=== PATIENT | female | born 1995 | race Caucasian/White ===

== ENCOUNTER 2019-08-03 15:04 | Emergency (ER) | payer BC ==
--- NOTE | 2019-08-03 16:24 | ER Document Report ---
ED Medical Screen (RME) - General Chief Complaint: Abdominal Pain Stated Complaint: ABDOMINAL PAIN,SHORT OF BREATH Time Seen by Provider: 08/03/19 16:17 - HPI Notes: 08/03/19 16:22 24 year old female to the ED with C/O lower abd pain that began 2-3 days ago. states she just had 5 positive home tests. Patient denies any vaginal bleeding. She has not follow up about the new . Never been before. She denies fever, chills. Admits to occasional nausea and one episode of vomiting. Denies urinary complaints. This is her first . Also voices concern over her Thyroid function - she has hypothyroidism. I performed a brief medical screening exam on the patient and determined that the patient will need further evaluation by mainside provider. I have placed initial orders to minister helper in her treatment today. - Related Data Allergies/Adverse Reactions: amoxicillin Allergy (Severe, Verified 08/03/19 16:18) Anaphylaxis Penicillins Allergy (Severe, Verified 08/03/19 16:18) Anaphylaxis Physical Exam - Vital signs Vitals: Temp Pulse Resp BP Pulse Ox 98.5 F 80 18 135/82 H 100 08/03/19 15:15 08/03/19 15:15 08/03/19 15:15 08/03/19 15:15 08/03/19 15:15 Course - Vital Signs Vital signs: Temp Pulse Resp BP Pulse Ox 98.5 F 80 18 135/82 H 100 08/03/19 15:15 08/03/19 15:15 08/03/19 15:15 08/03/19 15:15 08/03/19 15:15
--- NOTE | 2019-08-03 17:09 | RADIOLOGY REPORT (SQ) ---
EXAM DESCRIPTION: U/S OB TRANSVAGINAL W/O DOP COMPLETED DATE/TIME: 08/03/2019 4:54 pm REASON FOR STUDY: abd pain, 5 + tests at home COMPARISON: None. TECHNIQUE: Transvaginal static and realtime grayscale images acquired of the pelvis. Additional stevie cted spectral and color Doppler images recorded. All images stored on PACs. CLINICAL AGE: 4 weeks BHCG: Not available. LIMITATIONS: None. FINDINGS: UTERUS: No visualized intrauterine . RIGHT ADNEXA: Ovary not identified due to poor acoustical window. No adnexal free fluid. No adnexal masses. LEFT ADNEXA: Normal ovary with normal vascular flow. No adnexal free fluid. No adnexal masses. FREE FLUID: None. OTHER: No other significant finding. IMPRESSION: NO VISUALIZED INTRA- OR EXTRAUTERINE . Right ovary not visualized. ECTOPIC CANNOT BE EXCLUDED. FOLLOW-UP ULTRASOUND AND SERIAL BHCG LEVELS STRONGLY RECOMMENDED TO ACCURATELY ASSESS STATU S. TECHNICAL DOCUMENTATION: JOB ID: [id number] [id number] 2010 [employer]- All Rights Reserved Reading location - IP/workstation name: [email or web address]
[2019-08-03 17:19] LABS: ABSOLUTE BASOPHILS # (AUTO) 0.1 10^3/uL (0.0-0.2); ABSOLUTE EOSINOPHILS # (AUTO) 0.1 10^3/uL (0.0-0.6); ABSOLUTE MONOCYTES (AUTO) 0.7 10^3/uL (0.1-1.4); ABSOLUTE NEUT (AUTO) 7.8 10^3/uL (1.7-8.2); BASOPHILS % (AUTO) 0.4 % (0-2); EOSINOPHILS % (AUTO) 0.6 % (0-6); HEMATOCRIT 40.4 % (36.0-47.0); HEMOGLOBIN 13.8 g/dL (12.0-15.5); LYMPHOCYTES % (AUTO) 31.9 % (13-45); MEAN CORPUSCULAR HEMOGLOBIN 30.9 pg (27.0-33.4); MEAN CORPUSCULAR HGB CONC 34.2 g/dL (32.0-36.0); MEAN CORPUSCULAR VOLUME 90 fl (80-97); MONOCYTES % (AUTO) 5.9 % (3-13); PLATELET COUNT 269 10^3/uL (150-450); RED BLOOD COUNT 4.48 10^6/uL (3.72-5.28); RED CELL DISTRIBUTION WIDTH 13.1 % (11.5-14.0); SEGMENTED NEUTROPHILS % (AUTO) 61.2 % (42-78); TOTAL CELLS COUNTED % (AUTO) 100 %; WHITE BLOOD COUNT 12.7 10^3/uL (4.0-10.5)
[2019-08-03 17:42] LABS: ANION GAP 12 (5-19); BLOOD UREA NITROGEN 9 mg/dL (7-20); CARBON DIOXIDE 23 mmol/L (22-30); CHLORIDE 104 mmol/L (98-107); GLUCOSE 82 mg/dL (75-110); POTASSIUM 4.4 mmol/L (3.6-5.0)
[2019-08-03 17:59] LABS: FREE T4 (FREE THYROXINE) 0.86 ng/dL (0.78-2.19)
[2019-08-03 18:03] LABS: APPEARANCE,URINE SLIGHTLY-CLOUDY; BILIRUBIN,URINE NEGATIVE (NEGATIVE); COLOR,URINE YELLOW; GLUCOSE, URINE NEGATIVE (NEGATIVE); KETONES,URINE NEGATIVE (NEGATIVE); LEUKOCYTE ESTERASE,URINE TRACE (NEGATIVE); NITRITE,URINE NEGATIVE (NEGATIVE); PROTEIN,URINE NEGATIVE (NEGATIVE); URINE SPECIFIC GRAVITY 1.019; UROBILINOGEN,URINE NEGATIVE mg/dL (<2.0)
[2019-08-03 18:13] LABS: THYROID STIMULATING HORMONE 0.57 uIU/mL (0.47-4.68)
--- NOTE | 2019-08-03 19:50 | ER Document Report ---
ED General - General Chief Complaint: Abdominal Pain Stated Complaint: ABDOMINAL PAIN,SHORT OF BREATH Time Seen by Provider: 08/03/19 16:17 Mode of Arrival: Ambulatory Information source: Patient Notes: Patient presents emergency department with complaints of lower abdominal pain for the past 2 to 3 days. She reports she took 5 test at home and all were positive. She denies vaginal bleed bleeding. She denies pain with void. Denies urinary frequency. She reports she has never been . Last menstrual period was July 05. She denies fever vomiting diarrhea. She re ports she did vomit once last night but believes it was because she was too full. Patient reports she has an allergy to penicillin and amoxicillin. She reports anaphylactic reaction. - HPI Onset: Other Quality of pain: Cramping Associated symptoms: Vomiting Exacerbated by: Denies Relieved by: Denies Similar symptoms previously: No Recently seen / treated by doctor: No - Related Data Allergies/Adverse Reactions: amoxicillin Allergy (Severe, Verified 08/03/19 16:18) Anaphylaxis Penicillins Allergy (Severe, Verified 08/03/19 16:18) Anaphylaxis Home Medications: Levothyroxine, flovent inhaler, albuterol inhaler Past Medical History - General Information source: Patient Last Menstrual Period: 07/05/19 - Social History Smoking Status: Never Smoker Cigarette use (# per day): No Frequency of alcohol use: Social Drug Abuse: None Lives with: Family Family History: None Patient has suicidal ideation: No Patient has homicidal ideation: No Endocrine Medical History: Reports: Hx Hypothyroidism Past Surgical History: Reports: Hx Oral Surgery Review of Systems - Review of Systems Notes: Review HPI for review of systems., All other systems negative Physical Exam - Vital signs Vitals: Temp Pulse Resp BP Pulse Ox 98.5 F 80 18 135/82 H 100 08/03/19 15:15 08/03/19 15:15 08/03/19 15:15 08/03/19 15:15 08/03/19 15:15 - Notes Notes: PHYSICAL EXAMINATION: GENERAL: Well-appearing and in no acute distress HEAD: Atraumatic, normocephalic. EYES: Pupils equal round and reactive to light, extraocular movements intact, sclera anicteric, conjunctiva are normal. ENT: nares patent, oropharynx clear without exudates. Moist mucous membranes. NECK: Normal range of motion, supple without lymphadenopathy LUNGS: CTAB and equal. No wheezes rales or rhonchi. HEART: Regular rate and rhythm without murmurs ABDOMEN: Soft, no tenderness. No guarding, no rebound EXTREMITIES: Normal range of motion, no pitting edema. No cyanosis. NEUROLOGICAL: Cranial nerves grossly intact. Normal sensory/motor exams. PSYCH: Normal mood, normal affect. SKIN: Warm, Dry, normal turgor, no rashes or lesions noted Course - Re-evaluation Re-evalutation: 08/03/19 20:04 Beta-hCG is 15.80. Transvaginal ultrasound does not show an intrauterine gestational sac. Urinalysis shows leukocytes moderate blood a few WBCs. Patient will be treated for UTI with Macrobid. She is allergic to amoxicillin and penicillins. She reports she has anaphylactic reaction with these kind of medications. She was also instructed on the importance of follow-up with a repeat beta-hCG on Monday. Patient and her were instructed on ultrasound reports. They are instructed it may be too early to detect or possible ectopic . They both verbalized understanding to this information. She was instructed on the importance of returning to the emergency department for worsening symptoms concerns vaginal bleeding increased abdominal pain. She verbalized understanding to all instructions Laboratory 08/03/19 08/03/19 08/03/19 16:50 16:50 16:50 WBC 12.7 H RBC 4.48 Hgb 13.8 Hct 40.4 MCV 90 MCH 30.9 MCHC 34.2 RDW 13.1 Plt Count 269 Lymph % (Auto) 31.9 [place] % (Auto) 5.9 Eos % (Auto) 0.6 Baso % (Auto) 0.4 Absolute Neuts (auto) 7.8 Absolute Lymphs (auto) 4.0 Absolute Monos (auto) 0.7 Absolute Eos (auto) 0.1 Absolute Basos (auto) 0.1 Seg Neutrophils % 61.2 Sodium 138.9 Potassium 4.4 Chloride 104 Carbon Dioxide 23 Anion Gap 12 BUN 9 Creatinine 0.63 Est GFR ( Amer) > 60 Est GFR (MDRD) Non-Af > 60 Glucose 82 Calcium 10.0 TSH 0.57 Free T4 0.86 Beta HCG, Quant 15.80 H Total Beta HCG POSITIVE Urine Color Urine Appearance Urine pH Ur Specific [place] Urine Protein Urine Glucose (UA) Urine Ketones Urine Blood Urine Nitrite Urine Bilirubin Urine Urobilinogen Ur Leukocyte Esterase Urine WBC (Auto) Urine RBC (Auto) Squamous Epi Cells Auto Urine Mucus (Auto) Urine Ascorbic Acid 08/03/19 17:00 WBC RBC Hgb Hct MCV MCH MCHC RDW Plt Count Lymph % (Auto) [place] % (Auto) Eos % (Auto) Baso % (Auto) Absolute Neuts (auto) Absolute Lymphs (auto) Absolute Monos (auto) Absolute Eos (auto) Absolute Basos (auto) Seg Neutrophils % Sodium Potassium Chloride Carbon Dioxide Anion Gap BUN Creatinine Est GFR ( Amer) Est GFR (MDRD) Non-Af Glucose Calcium TSH Free T4 Beta HCG, Quant Total Beta HCG Urine Color YELLOW Urine Appearance SLIGHTLY-CLOUDY Urine pH 5.0 Ur Specific [place] 1.019 Urine Protein NEGATIVE Urine Glucose (UA) NEGATIVE Urine Ketones NEGATIVE Urine Blood MODERATE H Urine Nitrite NEGATIVE Urine Bilirubin NEGATIVE Urine Urobilinogen NEGATIVE Ur Leukocyte Esterase TRACE H Urine WBC (Auto) 3 Urine RBC (Auto) 2 Squamous Epi Cells Auto 3 Urine Mucus (Auto) OCC Urine Ascorbic Acid NEGATIVE Obstetrics Ultrasound 08/03/19 16:20 IMPRESSION: NO VISUALIZED INTRA- OR EXTRAUTERINE . Right ovary not visualized. ECTOPIC CANNOT BE EXCLUDED. FOLLOW-UP ULTRASOUND AND SERIAL BHCG LEVELS STRONGLY RECOMMENDED TO ACCURATELY ASSESS STATUS. - Vital Signs Vital signs: Temp Pulse Resp BP Pulse Ox 98.5 F 80 18 135/82 H 100 08/03/19 15:15 08/03/19 15:15 08/03/19 15:15 08/03/19 15:15 08/03/19 15:15 - Laboratory Result Diagrams: 08/03/19 16:50 08/03/19 16:50 Laboratory results interpreted by me: 08/03/19 08/03/19 08/03/19 16:50 16:50 17:00 WBC 12.7 H Beta HCG, Quant 15.80 H Urine Blood MODERATE H Ur Leukocyte Esterase TRACE H - Diagnostic Test Radiology reviewed: Reports reviewed Discharge - Discharge Clinical Impression: Abdominal pain Qualifiers: Abdominal location: lower abdomen, unspecified Qualified Code(s): R10.30 - Lower abdominal pain, unspecified UTI (urinary tract infection) Qualifiers: Urinary tract infection type: site unspecified Hematuria presence: with hematuria Qualified Code(s): N39.0 - Urinary tract infection, site not specified Condition: Stable Disposition: HOME, SELF-CARE Instructions: Abdominal Pain ([facility]), Cephalosporins ([facility]), Ectopic Precaution ([facility]), Nitrofurantoin ([facility]), [facility], ([facility]), Urinary Tract Infection ([facility]) Additional Instructions: *You have been evaluated for lower abdominal pain, UTI, *Your transvaginal ultrasound did not show a . Pregnancies are usually not detected until you are at least 6 weeks . An ectopic cannot be excluded. your beta hCG was 15.80. You will need to repeat your B- HCG on August 05. You may contact the culture nurse at [phone] for your results 2 hours after the test. *Take medication as prescribed for your UTI *Push fluids *Follow up with a primary care provider health department within 1 week for recheck *Plan urine recheck in one week *Return to ED for worsening condition, changes, needs, vaginal bleeding, increased abdominal pain Prescriptions: Nitrofurantoin/Nitrofuran Mac [Macrobid 100 mg Capsule] 100 mg PO BID #20 capsule Forms: Elevated Blood Pressure, Follow-Up Laboratory Testing
[2019-08-03 20:22] VITALS: BP 129/79
== END 2019-08-03 20:34 | disposition home or self-care (01) ==
LOC: ER 15:04
DX: N39.0 Urinary tract infection, site not specified (principal); R10.30 Lower abdominal pain, unspecified; R06.02 Shortness of breath; Z32.01 Encounter for pregnancy test, result positive; Z88.0 Allergy status to penicillin
CPT/HCPCS: 36415; 76817; 80048; 81001; 84439; 84443; 84702; 85025; 87086; 99284

== ENCOUNTER → 2019-08-05 | Outpatient (CLI) | payer BC | LOC: OD 11:28 | PROVIDERS: ATTEND Nurse Practitioner Family | DX: O26.899 Other specified pregnancy related conditions, unspecified trimester (principal); R10.9 Unspecified abdominal pain | CPT/HCPCS: 36415; 84702 ==

== ENCOUNTER → 2019-08-28 | Outpatient (CLI) | payer BC, OTHER | LOC: OD 15:38 | PROVIDERS: ATTEND Student in an Organized Health Care Education/Training Program | DX: O20.0 Threatened abortion (principal) | CPT/HCPCS: 36415; 86900; 86901 ==

== ENCOUNTER 2020-01-19 13:46 | Outpatient (CLI) | payer BC, OTHER ==
[2020-01-19 16:05] LABS: APPEARANCE,URINE CLOUDY; BILIRUBIN,URINE NEGATIVE (NEGATIVE); CALCIUM OXALATE CRYSTALS,URINE MODERATE /HPF; COLOR,URINE AMBER; GLUCOSE, URINE NEGATIVE (NEGATIVE); KETONES,URINE NEGATIVE (NEGATIVE); LEUKOCYTE ESTERASE,URINE MODERATE (NEGATIVE); NITRITE,URINE NEGATIVE (NEGATIVE); PROTEIN,URINE 30 mg/dL (NEGATIVE); URINE SPECIFIC GRAVITY 1.029
[2020-01-19 16:16] LABS: URINE AMPHETAMINES SCREEN NEGATIVE; URINE BARBITURATES SCREEN NEGATIVE; URINE BENZODIAZEPINES SCREEN NEGATIVE; URINE COCAINE SCREEN NEGATIVE; URINE MARIJUANA (THC) SCREEN NEGATIVE; URINE METHADONE SCREEN NEGATIVE; URINE PHENCYCLIDINE SCREEN NEGATIVE
[2020-01-19 18:22] LABS: RHOGAM DOSE INDICATED 0 VIAL(S)
--- NOTE | 2020-01-20 07:26 | RADIOLOGY REPORT (SQ) ---
EXAM DESCRIPTION: U/S OB LIMITED IMAGES COMPLETED DATE/TIME: 01/19/2020 2:26 pm REASON FOR STUDY: pt fell on stomach COMPARISON: None. TECHNIQUE: Limited transabdominal grayscale ultrasound for evaluation of specific requested obstetri alina parameters. LIMITATIONS: None. FINDINGS: CERVICAL LENGTH: 3.4 cm Closed. KENJI: Total KENJI 11.9 cm. LVP 5.3 cm FHR: 132 beats per minute. PRESENTATION: Cephalic. PLACENTA: Not assessed ANATOMY: Not assessed OTHER: Ultrasound gestational age 28 weeks 2 days IMPRESSION: LIMITED OBSTETRICAL ULTRASOUND WITH MEASURED PARAMETERS DELINEATED ABOVE. Trimester of : Second trimester - 13 weeks 1 day to 27 weeks 6 days. COMMENT: Preliminary report available to the emergency room at the time of scanning TECHNICAL DOCUMENTATION: JOB ID: [id number] 2010 [employer]- All Rights Reserved Reading location - IP/workstation name: [email or web address]
== END 2020-01-19 16:40 | disposition home or self-care (01) ==
LOC: LC 13:46
PROVIDERS: ATTEND Obstetrics & Gynecology
DX: O36.8130 Decreased fetal movements, third trimester, not applicable or unspecified (principal); Z88.0 Allergy status to penicillin; Z3A.28 28 weeks gestation of pregnancy; W19.XXXA Unspecified fall, initial encounter
CPT/HCPCS: 36415; 76815; 80307; 81001; 85460

== ENCOUNTER 2020-03-01 22:48 | Outpatient (CLI) | payer BC, OTHER ==
[2020-03-01 23:23] LABS: APPEARANCE,URINE SLIGHTLY-CLOUDY; BILIRUBIN,URINE NEGATIVE (NEGATIVE); COLOR,URINE YELLOW; GLUCOSE, URINE NEGATIVE (NEGATIVE); KETONES,URINE NEGATIVE (NEGATIVE); LEUKOCYTE ESTERASE,URINE NEGATIVE (NEGATIVE); NITRITE,URINE NEGATIVE (NEGATIVE); PROTEIN,URINE 30 mg/dL (NEGATIVE); URINE SPECIFIC GRAVITY 1.023
[2020-03-01 23:39] LABS: URINE AMPHETAMINES SCREEN NEGATIVE; URINE BARBITURATES SCREEN NEGATIVE; URINE BENZODIAZEPINES SCREEN NEGATIVE; URINE COCAINE SCREEN NEGATIVE; URINE MARIJUANA (THC) SCREEN NEGATIVE; URINE METHADONE SCREEN NEGATIVE; URINE PHENCYCLIDINE SCREEN NEGATIVE
[2020-03-02 00:30] LABS: T.VAGINALIS (WET MOUNT) NO TRICHOMONAS SEEN; WBCS (WET MOUNT) NO WBCS SEEN; YEAST (WET MOUNT) NO YEAST SEEN
--- NOTE | 2020-03-02 01:01 | Non Stress Test Report ---
Non Stress Test Datetime Report Generated by CPN: 03/02/2020 01:01 DEMOGRAPHIC EGA NST: 34.2 INDICATION Indication for Study (NST) Other: Gestational age greater than 32 weeks VITAL SIGNS Temperature - NST: 98.1 Pulse - NST: 84 RESP - NST: 16 NBPSYS NST: 135 NBPDIA NST: 79 URINE RESULTS Urine Protein, NST: Positive Urine Ketones - NST: Negative Urine Glucose - NST: Negative Urine Blood - NST: Positive MONITORING Monitor Explained: Monitor Explained; Test Explained; Patient Verbalized Understanding Time on Monitor: 03/01/2020 23:06 Time off Monitor: 03/02/2020 00:37 NST Duration: 91 NST INTERVENTIONS NST Interventions: PO Hydration; IV Fluids; Reposition Patient Physician Notified NST: Dr. Servin BABY A: [id number] BABY A Movement : Present Contraction Frequency : rare FHR Baseline : 135 Accelerations : 15X15 Decelerations : None Variability : Moderate 6-25bpm NST Review: Meets Criteria for Reactive NST NST Review and Verified By : Aixa Cedillo RN NST Results: Reactive NST REPORT Report Trigger: Send Report
[2020-03-02 01:53] LABS: CHLAM PCR NOT DETECTED (NOT DETECT)
== END 2020-03-02 00:48 | disposition home or self-care (01) ==
LOC: LC 22:48
PROVIDERS: ATTEND Obstetrics & Gynecology
DX: O46.93 Antepartum hemorrhage, unspecified, third trimester (principal); Z3A.34 34 weeks gestation of pregnancy; Z02.83 Encounter for blood-alcohol and blood-drug test
CPT/HCPCS: 59025; 80307; 81001; 84112; 87210; 87491; 87591

== ENCOUNTER 2020-03-09 16:43 | Outpatient (CLI) | payer BC, OTHER ==
[2020-03-09 17:36] LABS: APPEARANCE,URINE SLIGHTLY-CLOUDY; BILIRUBIN,URINE NEGATIVE (NEGATIVE); COLOR,URINE YELLOW; GLUCOSE, URINE NEGATIVE (NEGATIVE); KETONES,URINE NEGATIVE (NEGATIVE); LEUKOCYTE ESTERASE,URINE MODERATE (NEGATIVE); NITRITE,URINE NEGATIVE (NEGATIVE); PROTEIN,URINE NEGATIVE (NEGATIVE); URINE SPECIFIC GRAVITY 1.015; UROBILINOGEN,URINE NEGATIVE mg/dL (<2.0)
[2020-03-09 17:45] LABS: URINE AMPHETAMINES SCREEN NEGATIVE; URINE BARBITURATES SCREEN NEGATIVE; URINE BENZODIAZEPINES SCREEN NEGATIVE; URINE COCAINE SCREEN NEGATIVE; URINE MARIJUANA (THC) SCREEN NEGATIVE; URINE METHADONE SCREEN NEGATIVE; URINE PHENCYCLIDINE SCREEN NEGATIVE
[2020-03-09 17:47] LABS: HEMATOCRIT 37.2 % (36.0-47.0); HEMOGLOBIN 12.9 g/dL (12.0-15.5); MEAN CORPUSCULAR HGB CONC 34.6 g/dL (32.0-36.0); MEAN CORPUSCULAR VOLUME 92 fl (80-97); PLATELET COUNT 193 10^3/uL (150-450); RED BLOOD COUNT 4.02 10^6/uL (3.72-5.28); RED CELL DISTRIBUTION WIDTH 13.6 % (11.5-14.0); WHITE BLOOD COUNT 9.3 10^3/uL (4.0-10.5)
[2020-03-09 18:11] LABS: ALBUMIN 3.7 g/dL (3.5-5.0); ALKALINE PHOSPHATASE 84 U/L (38-126); ANION GAP 7 (5-19); ASPARTATE AMINO TRANSFERASE 22 U/L (14-36); BILIRUBIN,DIRECT 0.3 mg/dL (0.0-0.4); BILIRUBIN,TOTAL 0.3 mg/dL (0.2-1.3); BLOOD UREA NITROGEN 6 mg/dL (7-20); CALCIUM 9.8 mg/dL (8.4-10.2); CARBON DIOXIDE 24 mmol/L (22-30); CHLORIDE 106 mmol/L (98-107); GLUCOSE 72 mg/dL (75-110); POTASSIUM 4.1 mmol/L (3.6-5.0); TOTAL PROTEIN 6.6 g/dL (6.3-8.2); URIC ACID 5.3 mg/dL (2.5-6.2)
[2020-03-09 19:31] LABS: UR PRO/CREAT RATIO RESULT 0.2 mg/mg (0.0-0.2); URINE CREATININE 92.8 mg/dL (16-327); URINE PROTEIN 14.4 mg/dL (<12)
--- NOTE | 2020-03-09 19:57 | Non Stress Test Report ---
Non Stress Test Datetime Report Generated by CPN: 03/09/2020 19:57 DEMOGRAPHIC EGA NST: 35.3 INDICATION Indication for Study (NST) Other: LC VITAL SIGNS Temperature - NST: 99.0 Pulse - NST: 72 RESP - NST: 16 NBPSYS NST: 129 NBPDIA NST: 80 MONITORING Monitor Explained: Monitor Explained; Test Explained; Patient Verbalized Understanding Time on Monitor: 03/09/2020 16:59 Time off Monitor: 03/09/2020 18:39 NST Duration: 100 NST INTERVENTIONS NST Interventions: PO Hydration; Reposition Patient Physician Notified NST: Gareth MD BABY A: [id number] BABY A Movement : Present Contraction Frequency : Irregular FHR Baseline : 135 Accelerations : 15X15 Decelerations : None Variability : Moderate 6-25bpm NST Review: Meets Criteria for Reactive NST NST Review and Verified By : Aixa Cedillo RN NST Results: Reactive NST REPORT Report Trigger: Send Report
== END 2020-03-09 19:54 | disposition home or self-care (01) ==
LOC: LC 16:43
PROVIDERS: ATTEND Obstetrics & Gynecology
DX: O14.93 Unspecified pre-eclampsia, third trimester (principal); Z3A.35 35 weeks gestation of pregnancy; Z88.0 Allergy status to penicillin; Z02.83 Encounter for blood-alcohol and blood-drug test
CPT/HCPCS: 36415; 80053; 80307; 81005; 82570; 84156; 84550; 85027

== ENCOUNTER → 2020-03-24 | Outpatient (CLI) | payer BC, OTHER ==
[2020-03-24 17:36] LABS: ABSOLUTE LYMPHOCYTES (AUTO) 1.9 10^3/uL (0.5-4.7); ABSOLUTE MONOCYTES (AUTO) 0.5 10^3/uL (0.1-1.4); ABSOLUTE NEUT (AUTO) 7.2 10^3/uL (1.7-8.2); BASOPHILS % (AUTO) 0.4 % (0-2); EOSINOPHILS % (AUTO) 0.4 % (0-6); HEMOGLOBIN 12.9 g/dL (12.0-15.5); LYMPHOCYTES % (AUTO) 19.9 % (13-45); MEAN CORPUSCULAR HGB CONC 34.7 g/dL (32.0-36.0); MEAN CORPUSCULAR VOLUME 92 fl (80-97); MONOCYTES % (AUTO) 5.5 % (3-13); PLATELET COUNT 189 10^3/uL (150-450); RED BLOOD COUNT 4.02 10^6/uL (3.72-5.28); RED CELL DISTRIBUTION WIDTH 13.7 % (11.5-14.0); SEGMENTED NEUTROPHILS % (AUTO) 73.8 % (42-78); TOTAL CELLS COUNTED % (AUTO) 100 %; WHITE BLOOD COUNT 9.7 10^3/uL (4.0-10.5)
[2020-03-24 18:00] LABS: ALBUMIN 3.8 g/dL (3.5-5.0); ALKALINE PHOSPHATASE 107 U/L (38-126); ANION GAP 10 (5-19); ASPARTATE AMINO TRANSFERASE 22 U/L (14-36); BILIRUBIN,DIRECT 0.3 mg/dL (0.0-0.4); BILIRUBIN,TOTAL 0.3 mg/dL (0.2-1.3); BLOOD UREA NITROGEN 9 mg/dL (7-20); CALCIUM 9.2 mg/dL (8.4-10.2); CARBON DIOXIDE 20 mmol/L (22-30); CHLORIDE 106 mmol/L (98-107); GLUCOSE 111 mg/dL (75-110); POTASSIUM 4.2 mmol/L (3.6-5.0); TOTAL PROTEIN 6.8 g/dL (6.3-8.2); URIC ACID 5.5 mg/dL (2.5-6.2)
[2020-03-24 18:02] LABS: UR PRO/CREAT RATIO RESULT 0.1 mg/mg (0.0-0.2); URINE CREATININE 140.2 mg/dL (16-327)
== END ==
LOC: OD 16:24
PROVIDERS: ATTEND Obstetrics & Gynecology
DX: O13.9 Gestational [pregnancy-induced] hypertension without significant proteinuria, unspecified trimester (principal); Z13.29 Encounter for screening for other suspected endocrine disorder
CPT/HCPCS: 36415; 80053; 82570; 83615; 84156; 84439; 84443; 84550; 85025

== ENCOUNTER 2020-04-05 17:29 | Inpatient (IN) | payer BC, OTHER ==
[2020-04-05] MEDS ORDERED: ZOLPIDEM TARTRATE 5 MG TABLET PO PRN (17:31)
[2020-04-05] MEDS ORDERED: MAG HYDROX/AL HYDROX/SIMETH SUSP 30 ML UDCUP PO PRN (17:31)
[2020-04-05] MEDS ORDERED: ACETAMINOPHEN 325 MG TABLET PO PRN (17:31)
[2020-04-05] MEDS ORDERED: RINGERS SOLUTION,LACTATED 300 ML IV ONE (17:31)
[2020-04-05] MEDS ORDERED: RINGERS SOLUTION,LACTATED 1,000 ML IV PRN (17:31)
[2020-04-05] MEDS ORDERED: DINOPROSTONE 10 MG VAGINAL INSERT.SR PV ONE (17:31)
[2020-04-05] MEDS ORDERED: OXYTOCIN/0.9 % SODIUM CHLORIDE 30 UNIT/500 ML RTUINJ IV PRN (17:31)
[2020-04-05] MEDS ORDERED: MISOPROSTOL 0.2 MG TABLET ONE (17:36)
[2020-04-05] MEDS ORDERED: LIDOCAINE 1% INJ-PF (10 MG/ML) 30 ML SDV ONE (17:36)
[2020-04-05] MEDS ORDERED: OXYTOCIN/0.9 % SODIUM CHLORIDE 30 UNIT/500 ML RTUINJ ONE (17:36)
[2020-04-05] MEDS ORDERED: OXYTOCIN 10 UNIT/ML VIAL ONE (17:36)
[2020-04-05] MEDS ORDERED: DINOPROSTONE 10 MG VAGINAL INSERT.SR ONE (17:36)
[2020-04-05 18:27] LABS: ABSOLUTE LYMPHOCYTES (AUTO) 1.6 10^3/uL (0.5-4.7); ABSOLUTE MONOCYTES (AUTO) 0.7 10^3/uL (0.1-1.4); BASOPHILS % (AUTO) 0.4 % (0-2); EOSINOPHILS % (AUTO) 0.4 % (0-6); HEMATOCRIT 38.4 % (36.0-47.0); HEMOGLOBIN 13.3 g/dL (12.0-15.5); LYMPHOCYTES % (AUTO) 16.6 % (13-45); MEAN CORPUSCULAR HEMOGLOBIN 31.9 pg (27.0-33.4); MEAN CORPUSCULAR HGB CONC 34.7 g/dL (32.0-36.0); MEAN CORPUSCULAR VOLUME 92 fl (80-97); MONOCYTES % (AUTO) 7.2 % (3-13); PLATELET COUNT 197 10^3/uL (150-450); RED BLOOD COUNT 4.17 10^6/uL (3.72-5.28); SEGMENTED NEUTROPHILS % (AUTO) 75.4 % (42-78); TOTAL CELLS COUNTED % (AUTO) 100 %; WHITE BLOOD COUNT 9.3 10^3/uL (4.0-10.5)
[2020-04-05 18:56] LABS: APPEARANCE,URINE CLEAR; BILIRUBIN,URINE NEGATIVE (NEGATIVE); COLOR,URINE YELLOW; GLUCOSE, URINE NEGATIVE (NEGATIVE); KETONES,URINE NEGATIVE (NEGATIVE); LEUKOCYTE ESTERASE,URINE SMALL (NEGATIVE); NITRITE,URINE NEGATIVE (NEGATIVE); PROTEIN,URINE 30 mg/dL (NEGATIVE); URINE SPECIFIC GRAVITY 1.015; UROBILINOGEN,URINE NEGATIVE mg/dL (<2.0)
[2020-04-05 19:18] LABS: URINE AMPHETAMINES SCREEN NEGATIVE; URINE BARBITURATES SCREEN NEGATIVE; URINE BENZODIAZEPINES SCREEN NEGATIVE; URINE COCAINE SCREEN NEGATIVE; URINE MARIJUANA (THC) SCREEN NEGATIVE; URINE METHADONE SCREEN NEGATIVE; URINE PHENCYCLIDINE SCREEN NEGATIVE
[2020-04-05] MEDS ORDERED: MAG HYDROX/AL HYDROX/SIMETH SUSP 30 ML UDCUP ONE (20:10)
[2020-04-05] MEDS ORDERED: ZOLPIDEM TARTRATE 5 MG TABLET PO ONE (21:24)
[2020-04-05] MEDS ORDERED: ZOLPIDEM TARTRATE 5 MG TABLET ONE (21:25)
[2020-04-06] MEDS ORDERED: FENTANYL/BUPIVACAINE/NS/PF 300 MCG/150 ML RTUINJ EPI ONE (00:14)
[2020-04-06] MEDS ORDERED: ROPIVACAINE HCL 0.2% INJ/PF (2 MG/ML) 20 ML SDV ONE (00:14)
[2020-04-06] MEDS ORDERED: EPHEDRINE SULFATE INJ 50 MG/1 ML AMPULE ONE (00:14)
--- NOTE | 2020-04-06 01:27 | Admission Physical ---
Datetime Report Generated by CPN: 04/06/2020 01:27 CURRENT ADMISSION Chief Complaint: Scheduled Induction of Labor Indication for Induction: Chronic Primary/Essential HTN Admit Impression : Term, Intrauterine ; No Active Labor; Induction of Labor Admit Plan: Admit to Unit; Initiate Labor Induction Protocol ALLERGIES Medication Allergies: Yes Medication Allergies: Penicillins/SV/Anaphylaxis (01/19/2020); amoxicillin/SV/Anaphylaxis (01/19/2020) Latex: No Latex Allergies Food Allergies: n/a Environmental Allergies: n/a OBSTETRICAL HISTORY EDC: 04/10/2020 00:00 : 1 Para: 0 Term: 0 : 0 SAB: 0 IAB: 0 Ectopic: 0 Livin Cesareans: 0 VBACs: 0 Multiple Births: 0 Gestational Diabetes: No Rh Sensitization: No Incompetent Cervix: No ARTURO: No Infertility: No ART Treatment: No Uterine Anomaly: No IUGR: No Hx Previous C/S: No Macrosomia: No Hx Loss/Stillborn: No PIH: Yes Hx : No Placenta Previa/Abruption: No Depression/PP Depression: No PTL/PROM: No Post Hemorrhage: No Current Procedures: Ultrasound; NST Obstetrical History Comments: G1- current [place] SEE RECORDS Alcohol: No Marijuana : No Cocaine: No Other Illicit Drugs: No Cigarettes: Never Smoker. [id number] MEDICAL HISTORY Diabetes: No Blood Transfusion: No Pulmonary Disease (Asthma, TB): Yes Breast Disease: No Hypertension: Yes Nursing Care Partner Surgery: No Heart Disease: No Hosp/Surgery: No Autoimmune Disorder: No Anesthetic Complications: Unknown Kidney Disease: No Abnormal Pap Smear: No Neuro/Epilepsy: No Psychiatric Disorders: No Other Medical Diseases: No Hepatitis/Liver Disease: No Significant Family History: No Varicosities/Phlebitis: No Trauma/Violence : No Thyroid Dysfunction: Yes Medical History Comments: hypothyroidism, Asthma INFECTIOUS HISTORY Gonorrhea: No Genital Herpes: No Chlamydia: No Tuberculosis: No Syphilis: No Hepatitis: No HIV/AIDS Exposure: No Rash or Viral Illness: No HPV: No PHYSICAL EXAM General: Normal HEENT: Normal Neurologic: Normal Thyroid: Normal Heart: Normal Lungs: Normal Breast: Normal Back: Normal Abdomen: Normal Genitourinary Exam: Normal Extremities: Normal DTRs: Normal Pelvic Type: Adequate Vital Signs: Reviewed VAGINAL EXAM Dilatation: 3 Effacement: 75 Station: -2 MEMBRANES Pooling: Negative Membranes: Intact FETUS A EGA: 39.3 Monitoring: External US FHR- Baseline: 150 Variability: Moderate 6-25bpm Accelerations: 10X10 Decelerations: Prolonged FHR Category: Category II FHR Comments: will continue to evaluate. good variability Estimated Weight (gm): 3900 Presentation: Vertex Admit Comment: cervidil pulled secondary to decels. continue to watch. may need c/section PLANS FOR LABOR AND DELIVERY Labor and Delivery: None Pain Management: Epidural Feeding Preference: Breast Benefit of Breast Feed Discussed: Yes Circumcision: N/A INFORMED CONSENT Signature: with User ID: [email or web address]
[2020-04-06] MEDS ORDERED: ACETAMINOPHEN 325 MG TABLET PO PRN (03:49)
[2020-04-06] MEDS ORDERED: ACETAMINOPHEN 650 MG SUPP.RECT PR PRN (03:49)
[2020-04-06] MEDS ORDERED: NA PHOS,M-B/NA PHOS,DI-BA (ADULT) 133 ML ENEMA PR PRN (03:49)
[2020-04-06] MEDS ORDERED: PSEUDOEPHEDRINE HCL 30 MG TABLET PO PRN (03:49)
[2020-04-06] MEDS ORDERED: PROMETHAZINE HCL 25 MG SUPP.RECT PR PRN (03:49)
[2020-04-06] MEDS ORDERED: BENZOCAINE/MENTHOL AEROSOL SPRAY 56 ML TOP PRN (03:49)
[2020-04-06] MEDS ORDERED: DIPH/PERTUSS(ACELL)/TETANUS VAC/PF 0.5 ML SYR (>=10YO) IM PRN (03:49)
[2020-04-06] MEDS ORDERED: DIBUCAINE 1% OINTMENT 28 GM TP PRN (03:49)
[2020-04-06] MEDS ORDERED: PROMETHAZINE HCL 25 MG TABLET PO PRN (03:49)
[2020-04-06] MEDS ORDERED: DIPHENHYDRAMINE HCL 25 MG CAPSULE PO PRN (03:49)
[2020-04-06] MEDS ORDERED: MAGNESIUM HYDROXIDE SUSP 30 ML UDCUP PO PRN (03:49)
[2020-04-06] MEDS ORDERED: PROMETHAZINE HCL INJ 25 MG/1 ML VIAL IV PRN (03:49)
[2020-04-06] MEDS ORDERED: ACETAMINOPHEN WITH CODEINE #3 TABLET PO PRN ×2 (03:49)
[2020-04-06] MEDS ORDERED: OXYTOCIN/0.9 % SODIUM CHLORIDE 30 UNIT/500 ML RTUINJ IV PRN (03:49)
[2020-04-06] MEDS ORDERED: MEASLES,MUMPS&RUBELLA VACC/PF 0.5 ML VIAL SUBCUT PRN (03:49)
[2020-04-06] MEDS ORDERED: GLYCERIN/WITCH HAZEL LEAF 1 EACH MED..WIPE TP PRN (03:49)
[2020-04-06] MEDS ORDERED: ZOLPIDEM TARTRATE 5 MG TABLET PO PRN (03:49)
[2020-04-06] MEDS ORDERED: IBUPROFEN 800 MG TABLET ONE (05:29)
[2020-04-06] MEDS: IBUPROFEN 800 MG TABLET PO SCH ×3 (05:32→21:56)
--- NOTE | 2020-04-06 05:45 | Birth Certificate Data ---
Cert Data Datetime Report Generated by CPN: 04/06/2020 05:44 CERTIFICATE DATA 47a. Care: Yes (01/19/2020 13:49:Nathalie Trinidad RN) 47b. Date of First Visit: 09/02/2019 00:00 (01/19/2020 13:49:Nathalie Trinidad RN) 47c. Date of Last Visit: 03/31/2020 00:00 (01/19/2020 13:49:Nathalie Trinidad RN) 47d. Number of Visits: 14 (01/19/2020 13:49:Nathalie Trinidad RN) 48a. Number of Prev Live Births: 0 (01/19/2020 13:49:Mary Shelton RN) 48b. Now Livin (01/19/2020 13:49:Lakia Chester RN) 48c. Live Births Now : 0 (01/19/2020 13:49:QS system process) 48e. Losses: 0 (01/19/2020 13:49:Mary Shelton RN) RISK FACTORS IN THIS 49a. Diabetes: No (01/19/2020 13:49:Lakia Chester RN) 49b. Hypertension: Yes (01/19/2020 13:49:Lakia Chester RN) Type of Hypertension: Gestational (PIH, Pre-eclampsia) (01/19/2020 13:49:Lakia Chester RN) 49c. Previous Births: 0 (01/19/2020 13:49:Lakia Chester RN) 49d. Stillborns: No (01/19/2020 13:49:Lakia Chester RN) 49d. IUGR: No (01/19/2020 13:49:Lakia Chester RN) 49e. Infertility Treatment: No (01/19/2020 13:49:Mary Shelton RN) 49f. Previous Cesareans: 0 (01/19/2020 13:49:Lakia Chester RN) Mother's Height 50b. Height Inches: 63 (04/05/2020 18:01:QS system process) Mother's Weight 51a. Pre- Weight (lbs): 182 (01/19/2020 13:49:Lakia Chester RN) 51b. Weight at Delivery (lbs): 200 (04/05/2020 18:01:QS system process) 52. Dt Last Normal Menses Began: 07/05/2019 00:00 (01/19/2020 13:49:Nathalie Trinidad RN) Infections Present/Treated 53a. Gonorrhea: No (01/19/2020 13:49:Mary Shelton RN) Results this Hospital Visit : Negative (01/19/2020 13:49:Nathalie Trinidad RN) 53b. Syphilis: No (01/19/2020 13:49:Mary Shelton RN) 53c. Chlamydia: No (01/19/2020 13:49:Mary Shelton RN) Results this Hospital Visit: Negative (01/19/2020 13:49:Nathalie Trinidad RN) 53d. Hepatitis B: No (01/19/2020 13:49:Lakia Chester RN) Results this Hospital Visit: Negative (01/19/2020 13:49:Lakia Chester RN) 53e. Hepatitis C: Negative (01/19/2020 13:49:Lakia Chester RN) 53h. Mother Tested for HBsAG: Yes (01/19/2020 13:49:Nathalie Trinidad RN) 53i. Date Tested: 09/02/2019 00:00 (01/19/2020 13:49:Nathalie Trinidad RN) 53j. Test Result: Negative (01/19/2020 13:49:Lakia Chester RN) Obstetric Procedures 54a, b, c. Obstetric Procedures: Ultrasound; NST (01/19/2020 13:49:Lakia Chester RN) Cigarette Smoking Cigarette Smoking: Never Smoker. [id number] (01/19/2020 13:49:Nathalie Trinidad RN) Onset of Labor 56a. PROM >12 Hrs: 2.15 (04/06/2020 01:27:QS system process) 56b. Precipitous Labor <3 Hrs: 2 (01/19/2020 13:49:QS system process) 56c. Prolonged Labor > 20 Hrs: 2 (01/19/2020 13:49:QS system process) 57a. Induction of Labor: N/A (01/19/2020 13:49:Grant Manzo RN) 57a. Induction of Labor: Cervidil (04/05/2020 18:50:Mary Shelton RN) 57a. Induction of Labor: cervidil (01/19/2020 13:49:Vicki Servin MD ([facility])) 57c. Non-Vertex Presentation A: Vertex (01/19/2020 13:49:Grant Manzo RN) 57f. Mat [place] or Temp >100.4: 98.5 (01/19/2020 13:49:Grant Manzo RN) 57g. Moderate/Heavy Meconium: Clear (04/06/2020 01:27:Grant Manzo RN) 57h. Intolerance of Labor: N/A (01/19/2020 13:49:Grant Manzo RN) : N/A (01/19/2020 13:49:Grant Manzo RN) 57i. Epidural/Spinal Anesthesia: Epidural (01/19/2020 13:49:Grant Manzo RN) Method of Delivery 58a. Forceps - Unsuccessful A: N/A (01/19/2020 13:49:Grant Manzo RN) 58b. Vacuum - Unsuccessful A: N/A (01/19/2020 13:49:Grant Manzo RN) 58c. Presentation at 58c. Presentation at - A : Vertex (01/19/2020 13:49:Grant Manzo RN) 58c. Presentation at - A : N/A (01/19/2020 13:49:Grant Manzo RN) 58c. Presentation at - A : Cephalic (04/05/2020 18:49:Mary Shelton RN) Final Route and Method of Del 58d. Baby A Route/Delivery: Vaginal (04/06/2020 03:36:Grant Manzo RN) 58e. Trial of Labor Attempted: No (01/19/2020 13:49:Grant Manzo RN) 58e. Trial of Labor Attempted A: N/A (01/19/2020 13:49:Grant Manzo RN) 58e. Trial of Labor Attempted B: N/A (01/19/2020 13:49:Grant Manzo RN) Maternal Morbidity 59b. 3rd or 4th Degree Lacs: Vaginal (01/19/2020 13:49:Vicki Servin MD ([facility])) Birthweight Baby A: 3480 (01/19/2020 13:49:Grant Manzo RN) 60a. Pounds : 7 (01/19/2020 13:49:QS system process) 60b. Ounces: 11 (01/19/2020 13:49:QS system process) 61. GA at Delivery Baby A: 39.3 (01/19/2020 13:49:Grant Manzo RN) : Full Term- 39- 40.6 Weeks (01/19/2020 13:49:QS system process) 62a. 5 Minute Baby A: 8 (01/19/2020 13:49:QS system process)
--- NOTE | 2020-04-06 05:45 | Delivery Summary ---
Del Sum A-C Datetime Report Generated by CPN: 04/06/2020 05:44 DELIVERY PERSONNEL DELIVERY PERSONNEL: [id number] Delivery Doctor:: Vicki Servin MD Labor and Delivery Nurse:: Grant Manzo RNpediatric oncologist Nurse:: Jayda Cedillo [employer] Teaching Gr[employer] 7 And 8 Teacher/DIALYSIS CHIEF EQUIPMENT TECHNICIAN: Nellie Green, ST MATERNAL INFORMATION Delivery Anesthesia: Epidural Medications After Delivery: Pitocin 30 Units in 500ml NS/D5W Estimated Blood Loss (ml): 300 Delivery QBL: 150 Maternal Complications: None Provider Comments: mild dystocia lasting less than 30 secs releived with Flavio and suprapubic. nuchal cord x 1 at neck. LABOR SUMMARY EDC: 04/10/2020 00:00 No. Babies in Womb: 1 Attempted: No Labor Anesthesia: Epidural LABOR INFORMATION Reason for Induction: Gestational Hypertension Onset of Labor: 04/06/2020 01:27 Complete Dilatation: 04/06/2020 03:15 Cervical Ripening Agents: Cervidil Other Ripening Agents: cervidil Oxytocin: N/A Group B Beta Strep: negative Antibiotics # of Doses: 0 Name of Antibiotic Given: n/a MEMBRANES Membranes Rupture Method: Artificial Rupture of Membranes: 04/06/2020 01:27 Length of Rupture (hr): 2.15 Amniotic Fluid Color: Clear Amniotic Fluid Amount: Small Amniotic Fluid Odor: Normal STAGES OF LABOR Stage 1 hr: 1 Stage 1 min: 48 Stage 2 hr: 0 Stage 2 min: 21 Stage 3 hr: 0 Stage 3 min: 3 Total Time in Labor hr: 2 Total Time in Labor min: 12 VAGINAL DELIVERY Episiotomy: None Laceration #1: Vaginal Laceration Extension #1: First Degree Laceration Repair: Yes Laceration Repair Note: figure of 8 chromic Sponge Count Correct: Yes Sharps Count Correct: Yes CSECTION DELIVERY Primary Indication: N/A Secondary Indication: N/A CSection Incidence: N/A Labor: N/A Elective: N/A CSection Incision: N/A BABY A INFORMATION Infant Delivery Date/Time: 04/06/2020 03:36 Method of Delivery: Vaginal Nurse Controlled Delivery: No Born in Route : No : N/A Forceps: N/A Vacuum Extraction: N/A Shoulder Dystocia : Yes SHOULDER DYSTOCIA BABY A Delivery of Head: 04/06/2020 03:36 Time Head to Delivery : 0.0 1st Intervention to Resolve: McRobert's Maneuver 2nd Intervention to Resolve: Suprapubic Pressure Verify NO Fundal Pressure: No Fundal Pressure Applied Arm Under Symphisis at Del: Right PRESENTATION/POSITION BABY A Presentation: Cephalic Cephalic Presentation: Vertex Vertex Position: Left Occipital Anterior Breech Presentation: N/A PLACENTA INFORMATION BABY A Placenta Delivery Time : 04/06/2020 03:39 Placenta Method of Delivery: Spontaneous Placenta Status: Delivered SCORES BABY A Heart Rate 1 min: >100 bpm Resp Effort 1 min: Good Cry Reflex Irritability 1 min: Grimace Muscle Tone 1 min: Flaccid Color 1 min: Blue/Pale Resuscitation Effort 1 min: Tactile Stimulation; Oxygen SCORE 1 MIN: 5 Heart Rate 5 min: >100 bpm Resp Effort 5 min: Good Cry Reflex Irritability 5 min: Cough or Sneeze or Pulls Away Muscle Tone 5 min: Some Flexion of Extremities Color 5 min: Body [place], Extremities Blue SCORE 5 MIN: 8 INFANT INFORMATION BABY A Gestational Age at Delivery: 39.3 Gestational Status: Full Term- 39- 40.6 Weeks Outcome : Liveborn Condition : Stable Sex: Female IDENTIFICATION BABY A Verification Date/Time: 04/06/2020 05:04 ID Band Number: [id number] Mother's Name Verified: Yes Infant RN Verifying : Vernon Manzo RN/D Yanete RN WEIGHT/LENGTH BABY A Infant Birthweight (gm): 3480 Weight (lb): 7 Weight (oz): 11 Length (in): 21.75 Infant Length (cm): 55.25 CORD INFORMATION BABY A No. Cord Vessels: 3 Nuchal Cord : Around Neck x1, Loose Cord Blood Taken: Yes-For Storage (Mom's Blood type +) Infant Suction: Mouth; Nose ASSESSMENT BABY A Skin to Skin: Yes Skin to Skin Time (min): 60 BABY B INFORMATION : N/A SIGNATURES Signature: with User ID: [email or web address]
[2020-04-06] MEDS: DOCUSATE SODIUM 100 MG CAPSULE PO SCH ×2 (09:58→17:56)
[2020-04-06] MEDS: SENNOSIDES/DOCUSATE 8.6-50 MG 1 EACH TABLET PO SCH (09:58)
[2020-04-06] MEDS: FERROUS SULFATE 325 MG TABLET PO SCH ×2 (09:59→17:56)
[2020-04-06] MEDS: PRENATAL VITAMIN W DHA CAPSULE PO SCH (10:00)
--- NOTE | 2020-04-06 10:30 | PDOC PROGRESS REPORT ---
Subjective-OB Progress Note for:: 04/06/20 - Delivery Day, pt doing well, UOB, voiding, plans to breastfeed, A+, rubella Immune, IOL for GHTN, denies headache Physical Exam (OB) Vital Signs: Temp Pulse Resp BP Pulse Ox 98.0 F 89 17 126/75 H 99 04/06/20 07:32 04/06/20 07:32 04/06/20 07:32 04/06/20 07:32 04/06/20 07:32 Intake & Output 04/05/20 04/06/20 04/07/20 06:59 06:59 06:59 Intake Total 1200 Output Total 500 Balance 700 Weight 91.2 kg - General General Appearance: Appears well, Alert In distress: None - PIH/Pre-Eclampsia Headache: Absent Epigastric Pain: No Visual Changes: No - Maternal Morbidity 59. Maternal Morbidity (serious complications experinced by the mother associated with labor and delivery: None of the above - Lochia Lochia Amount: Scant < 10 ml Lochia Color: Rubra/Red - Abdomen Description: Tender, Soft, Round Hernia Present: No Fundal Description: Firm, Midline Fundal Height: u/u - u/2 - Respiratory Respiratory Status: No respiratory distress - Genitourinary Genitourinary Note: voiding - Extremities Upper extremity: Normal inspection Lower extremities: Edema - Neurological Cognition: Normal Orientation: AAOx4 - Psychological Associated symptoms: Normal affect, Normal mood - Skin Skin Temperature: Warm Skin Moisture: Dry Objective-Diagnostic Laboratory: 04/05/20 16:11 04/05/20 04/05/20 04/05/20 16:11 16:11 17:50 WBC 9.3 RBC 4.17 Hgb 13.3 Hct 38.4 MCV 92 MCH 31.9 MCHC 34.7 RDW 14.0 Plt Count 197 Seg Neutrophils % 75.4 Urine Color YELLOW Urine Appearance CLEAR Urine pH 6.0 Ur Specific [place] 1.015 Urine Protein 30 H Urine Glucose (UA) NEGATIVE Urine Ketones NEGATIVE Urine Blood NEGATIVE Urine Nitrite NEGATIVE Ur Leukocyte Esterase SMALL H Blood Type A POSITIVE Antibody Screen NEGATIVE Assessment and Plan(PN) - Assessment and Plan (1) (normal spontaneous vaginal delivery) Is this a current diagnosis for this admission?: Yes (2) Gestational hypertension Qualifiers: Trimester: third trimester Qualified Code(s): O13.3 - Gestational [-induced] hypertension without significant proteinuria, third trimester Is this a current diagnosis for this admission?: Yes Plan:: Ambulation encouraged, Routine PP orders - Time Spent with Patient Time with patient: Less than 15 minutes Medications reviewed and adjusted accordingly: Yes - Disposition Anticipated Discharge Disposition: Home, Self Care Anticipated Discharge Timeframe: within 24 hours
[2020-04-06] MEDS: FAMOTIDINE 20 MG TABLET PO SCH ×2 (14:12→21:55)
[2020-04-07] MEDS: IBUPROFEN 800 MG TABLET PO SCH ×3 (05:53→21:23)
[2020-04-07 06:31] LABS: HEMATOCRIT 36.6 % (36.0-47.0); HEMOGLOBIN 12.5 g/dL (12.0-15.5); MEAN CORPUSCULAR HEMOGLOBIN 32.1 pg (27.0-33.4); MEAN CORPUSCULAR HGB CONC 34.3 g/dL (32.0-36.0); MEAN CORPUSCULAR VOLUME 94 fl (80-97); PLATELET COUNT 155 10^3/uL (150-450); RED BLOOD COUNT 3.91 10^6/uL (3.72-5.28); RED CELL DISTRIBUTION WIDTH 14.1 % (11.5-14.0); WHITE BLOOD COUNT 9.7 10^3/uL (4.0-10.5)
[2020-04-07] MEDS: SENNOSIDES/DOCUSATE 8.6-50 MG 1 EACH TABLET PO SCH (09:28)
[2020-04-07] MEDS: FAMOTIDINE 20 MG TABLET PO SCH ×2 (09:28→21:24)
[2020-04-07] MEDS: PRENATAL VITAMIN W DHA CAPSULE PO SCH (09:28)
[2020-04-07] MEDS: DOCUSATE SODIUM 100 MG CAPSULE PO SCH ×2 (09:28→17:24)
[2020-04-07] MEDS: FERROUS SULFATE 325 MG TABLET PO SCH ×2 (09:28→17:24)
--- NOTE | 2020-04-07 11:14 | PDOC PROGRESS REPORT ---
Subjective-OB Progress Note for:: 04/07/20 Subjective: Pt doing well, no concerns. She reports light bleeding, reg diet and voiding w/o difficulty. Physical Exam (OB) Vital Signs: Temp Pulse Resp BP Pulse Ox 97.9 F 70 17 129/98 H 100 04/07/20 07:40 04/07/20 07:40 04/07/20 07:40 04/07/20 07:40 04/07/20 07:40 Intake & Output 04/06/20 04/07/20 04/08/20 06:59 06:59 06:59 Intake Total 2900 300 Output Total 500 Balance 2400 300 Weight 91.2 kg - Maternal Morbidity 59. Maternal Morbidity (serious complications experinced by the mother associated with labor and delivery: None of the above - Lochia Lochia Amount: Small 10-25 ml Lochia Color: Rubra/Red - Abdomen Description: Soft Hernia Present: No Fundal Description: Firm, Midline Fundal Height: u/u - u/2 Objective-Diagnostic Laboratory: 04/07/20 06:02 04/07/20 06:02 WBC 9.7 RBC 3.91 Hgb 12.5 Hct 36.6 MCV 94 MCH 32.1 MCHC 34.3 RDW 14.1 H Plt Count 155 Assessment and Plan(PN) - Assessment and Plan (1) Gestational hypertension Qualifiers: Trimester: third trimester Qualified Code(s): O13.3 - Gestational [-induced] hypertension without significant proteinuria, third trimester Is this a current diagnosis for this admission?: Yes (2) (normal spontaneous vaginal delivery) Is this a current diagnosis for this admission?: Yes - Time Spent with Patient Time with patient: Less than 15 minutes Medications reviewed and adjusted accordingly: Yes - Disposition Anticipated Discharge Disposition: Home, Self Care Anticipated Discharge Timeframe: within 24 hours
[2020-04-08] MEDS: IBUPROFEN 800 MG TABLET PO SCH ×2 (05:10→13:15)
[2020-04-08] MEDS: FAMOTIDINE 20 MG TABLET PO SCH (10:08)
[2020-04-08] MEDS: DOCUSATE SODIUM 100 MG CAPSULE PO SCH (10:08)
[2020-04-08] MEDS: PRENATAL VITAMIN W DHA CAPSULE PO SCH (10:08)
[2020-04-08] MEDS: SENNOSIDES/DOCUSATE 8.6-50 MG 1 EACH TABLET PO SCH (10:08)
[2020-04-08] MEDS: FERROUS SULFATE 325 MG TABLET PO SCH (10:08)
[2020-04-08 11:48] VITALS: BP 129/81
--- NOTE | 2020-04-08 11:50 | PDOC DISCHARGE SUMMARY ---
Impression - Admit/DC Date/PCP Admission Date/Primary Care Provider: 04/05/20 17:29 Discharge Date: 04/08/20 - Discharge Diagnosis (1) Gestational hypertension Is this a current diagnosis for this admission?: Yes (2) (normal spontaneous vaginal delivery) Is this a current diagnosis for this admission?: Yes (3) Obstetric vaginal laceration Is this a current diagnosis for this admission?: Yes (4) Shoulder dystocia during labor and delivery, delivered Is this a current diagnosis for this admission?: Yes - Assessment Summary: 24yo s/p ppd2- stable and ready for discharge, understands all warning s/s and reasons to rtc/[facility] prior to next scheduled visit. Pt asked questions and verbalized understanding. - Additional Information Resuscitation Status: Full Code Discharge Diet: As Tolerated, Regular Discharge Activity: Activity As Tolerated, Balance Activity w/Rest, No Lifting Over 10 Pounds, No Lifting/Push/Pulling, Pelvic Rest, No tub bath, Walk Frequently Prescriptions: Ibuprofen [Motrin 800 mg Tablet] 800 mg PO Q8HP PRN #20 tablet PRN Reason: For Pain Scale 1-3 Home Medications: Albuterol Sulfate [Albuterol Sulfate Hfa] 8.5 gm IH PRN PRN 01/19/20 Fluticasone Propionate [Flovent Hfa 110 Mcg Inhalation Aerosol 12 gm] 120 puff IH PRN PRN 01/19/20 Levothyroxine Sodium [Synthroid] 100 mcg PO DAILY 01/19/20 Vit No.130/Iron/Folic [ Tablet] 1 each PO DAILY 01/19/20 Ibuprofen [Motrin 800 mg Tablet] 800 mg PO Q8HP PRN #20 tablet 04/08/20 Hospital Course 59. Maternal Morbidity (serious complications experinced by the mother associated with labor and delivery: None of the above Results Laboratory Results: WBC 9.7 10^3/uL (4.0-10.5) 04/07/20 06:02 RBC 3.91 10^6/uL (3.72-5.28) 04/07/20 06:02 Hgb 12.5 g/dL (12.0-15.5) 04/07/20 06:02 Hct 36.6 % (36.0-47.0) 04/07/20 06:02 MCV 94 fl (80-97) 04/07/20 06:02 MCH 32.1 pg (27.0-33.4) 04/07/20 06:02 MCHC 34.3 g/dL (32.0-36.0) 04/07/20 06:02 RDW 14.1 % (11.5-14.0) H 04/07/20 06:02 Plt Count 155 10^3/uL (150-450) 04/07/20 06:02 Lymph % (Auto) 16.6 % (13-45) 04/05/20 16:11 [place]mullen % (Auto) 7.2 % (3-13) 04/05/20 16:11 Eos % (Auto) 0.4 % (0-6) 04/05/20 16:11 Baso % (Auto) 0.4 % (0-2) 04/05/20 16:11 Absolute Neuts (auto) 7.0 10^3/uL (1.7-8.2) 04/05/20 16:11 Absolute Lymphs (auto) 1.6 10^3/uL (0.5-4.7) 04/05/20 16:11 Absolute Monos (auto) 0.7 10^3/uL (0.1-1.4) 04/05/20 16:11 Absolute Eos (auto) 0.0 10^3/uL (0.0-0.6) 04/05/20 16:11 Absolute Basos (auto) 0.0 10^3/uL (0.0-0.2) 04/05/20 16:11 Seg Neutrophils % 75.4 % (42-78) 04/05/20 16:11 Urine Color YELLOW 04/05/20 17:50 Urine Appearance CLEAR 04/05/20 17:50 Urine pH 6.0 (5.0-9.0) 04/05/20 17:50 Ur Specific [place] 1.015 04/05/20 17:50 Urine Protein 30 mg/dL (NEGATIVE) H 04/05/20 17:50 Urine Glucose (UA) NEGATIVE mg/dL (NEGATIVE) 04/05/20 17:50 Urine Ketones NEGATIVE mg/dL (NEGATIVE) 04/05/20 17:50 Urine Blood NEGATIVE (NEGATIVE) 04/05/20 17:50 Urine Nitrite NEGATIVE (NEGATIVE) 04/05/20 17:50 Urine Bilirubin NEGATIVE (NEGATIVE) 04/05/20 17:50 Urine Urobilinogen NEGATIVE mg/dL (<2.0) 04/05/20 17:50 Ur Leukocyte Esterase SMALL (NEGATIVE) H 04/05/20 17:50 Urine Ascorbic Acid NEGATIVE (NEGATIVE) 04/05/20 17:50 Urine Opiates Screen NEGATIVE 04/05/20 17:50 Urine Methadone Screen NEGATIVE 04/05/20 17:50 Ur Barbiturates Screen NEGATIVE 04/05/20 17:50 Ur Phencyclidine Scrn NEGATIVE 04/05/20 17:50 Ur Amphetamines Screen NEGATIVE 04/05/20 17:50 U Benzodiazepines Scrn NEGATIVE 04/05/20 17:50 Urine Cocaine Screen NEGATIVE 04/05/20 17:50 U Marijuana (THC) Screen NEGATIVE 04/05/20 17:50 RPR NONREACTIVE (NONREACTIVE) 04/05/20 16:11 Blood Type A POSITIVE 04/05/20 16:11 Antibody Screen NEGATIVE 04/05/20 16:11
== END 2020-04-08 14:51 | disposition home or self-care (01) | DRG 807 ==
LOC: LR 17:29 → 2S 04-06 06:02
PROVIDERS: ADMIT Obstetrics & Gynecology; ATTEND Obstetrics & Gynecology
PROC: 10E0XZZ Delivery of Products of Conception, External Approach (ICD-10-PCS; principal; 2020-04-06)
PROC: 0HQ9XZZ Repair Perineum Skin, External Approach (ICD-10-PCS; 2020-04-06)
PROC: 10907ZC Drainage of Amniotic Fluid, Therapeutic from Products of Conception, Via Natural or Artificial Opening (ICD-10-PCS; 2020-04-06)
DX: O13.4 Gestational [pregnancy-induced] hypertension without significant proteinuria, complicating childbirth (principal); Z37.0 Single live birth; O66.0 Obstructed labor due to shoulder dystocia; O99.284 Endocrine, nutritional and metabolic diseases complicating childbirth; O70.0 First degree perineal laceration during delivery; E03.9 Hypothyroidism, unspecified; O69.81X0 Labor and delivery complicated by cord around neck, without compression, not applicable or unspecified; Z03.818 Encounter for observation for suspected exposure to other biological agents ruled out; Z88.0 Allergy status to penicillin; Z3A.39 39 weeks gestation of pregnancy
CPT/HCPCS: 1967; 36415; 80307; 81005; 85025; 85027; 86592; 86850; 86900; 86901; 90715; J2590; J2795; J3010; J3490

== ENCOUNTER 2020-04-20 04:43 | Observation (INO) | payer BC, OTHER ==
[2020-04-20 05:20] LABS: ABSOLUTE BASOPHILS # (AUTO) 0.1 10^3/uL (0.0-0.2); ABSOLUTE EOSINOPHILS # (AUTO) 0.2 10^3/uL (0.0-0.6); ABSOLUTE LYMPHOCYTES (AUTO) 3.3 10^3/uL (0.5-4.7); ABSOLUTE MONOCYTES (AUTO) 0.5 10^3/uL (0.1-1.4); ABSOLUTE NEUT (AUTO) 8.1 10^3/uL (1.7-8.2); EOSINOPHILS % (AUTO) 1.7 % (0-6); HEMATOCRIT 43.2 % (36.0-47.0); HEMOGLOBIN 14.9 g/dL (12.0-15.5); MEAN CORPUSCULAR HEMOGLOBIN 31.8 pg (27.0-33.4); MEAN CORPUSCULAR HGB CONC 34.5 g/dL (32.0-36.0); MEAN CORPUSCULAR VOLUME 92 fl (80-97); PLATELET COUNT 253 10^3/uL (150-450); RED BLOOD COUNT 4.69 10^6/uL (3.72-5.28); RED CELL DISTRIBUTION WIDTH 13.5 % (11.5-14.0); SEGMENTED NEUTROPHILS % (AUTO) 66.3 % (42-78); TOTAL CELLS COUNTED % (AUTO) 100 %; WHITE BLOOD COUNT 12.3 10^3/uL (4.0-10.5)
[2020-04-20 05:39] LABS: ALBUMIN 4.6 g/dL (3.5-5.0); ALKALINE PHOSPHATASE 97 U/L (38-126); ANION GAP 13 (5-19); ASPARTATE AMINO TRANSFERASE 47 U/L (14-36); BILIRUBIN,DIRECT 0.4 mg/dL (0.0-0.4); BILIRUBIN,TOTAL 0.5 mg/dL (0.2-1.3); BLOOD UREA NITROGEN 15 mg/dL (7-20); CALCIUM 9.8 mg/dL (8.4-10.2); CARBON DIOXIDE 25 mmol/L (22-30); CHLORIDE 104 mmol/L (98-107); GLUCOSE 100 mg/dL (75-110); POTASSIUM 4.3 mmol/L (3.6-5.0); TOTAL PROTEIN 7.5 g/dL (6.3-8.2)
[2020-04-20 06:05] LABS: APPEARANCE,URINE CLEAR; BILIRUBIN,URINE NEGATIVE (NEGATIVE); COLOR,URINE YELLOW; GLUCOSE, URINE NEGATIVE (NEGATIVE); KETONES,URINE NEGATIVE (NEGATIVE); LEUKOCYTE ESTERASE,URINE SMALL (NEGATIVE); NITRITE,URINE NEGATIVE (NEGATIVE); PROTEIN,URINE NEGATIVE (NEGATIVE); URINE SPECIFIC GRAVITY 1.021; UROBILINOGEN,URINE NEGATIVE mg/dL (<2.0)
[2020-04-20] MEDS ORDERED: NORMAL SALINE 1000 ML 1,000 ML IV ONE ×2 (06:40→09:38)
[2020-04-20] MEDS ORDERED: ONDANSETRON HCL INJ/PF 4 MG/2 ML SDV IV ONE (06:40)
[2020-04-20] MEDS ORDERED: MORPHINE SULFATE 10 MG/ML INJ IV ONE (06:41)
--- NOTE | 2020-04-20 06:43 | ER Document Report ---
ED GI/ - General Chief Complaint: Abdominal Pain Stated Complaint: ABDOMINAL PAIN,VOMIT Time Seen by Provider: 04/20/20 06:26 Notes: HPI: 24-year-old G1, P1 with normal spontaneous vaginal delivery 2 weeks ago presents today with the onset last night of some epigastric and right upper quadrant "pain". No radiation to the back. No aggravating relieving factors. Nausea and vomiting x3. No diarrhea. No lower abdominal discomfort. No h istory of gallstones or gastric ulcers. ROS: See HPI All other review of systems reviewed and otherwise negative Reviewed vital signs and nursing note as charted by RN. PHYSICAL EXAM: CONSTITUTIONAL: Alert and oriented and responds appropriately to questions HEAD: Normocephalic; atraumatic EYES: Sclerae non-icteric ENT: Normal nose; no rhinorrhea; moist mucous membranes; pharynx without lesions noted NECK: Supple without meningismus; non-tender; no cervical lymphadenopathy, no masses CARD: Regular rate and rhythm; no murmurs; symmetric distal pulses RESP: Normal chest excursion without splinting or tachypnea; breath sounds clear and equal bilaterally; no wheezes, no rhonchi, no rales ABD/GI: Normal bowel sounds; non-distended; tender to palpation to the epigastric and right upper quadrant. Positive Saldana sign. No lower abdominal tenderness to deep palpation BACK: The back appears normal and is non-tender to palpation EXT: Normal ROM in all joints; non-tender to palpation; no edema SKIN: No acute lesions noted NEURO: CN 2-12 intact; 5/5 bilateral upper and lower extremity strength with sensation intact to light touch PSYCH: The patient's mood and manner are appropriate. Grooming and personal hygiene are appropriate. TRAVEL OUTSIDE OF THE [place] IN LAST 30 DAYS: No - Related Data Allergies/Adverse Reactions: amoxicillin Allergy (Severe, Verified 01/19/20 13:58) Anaphylaxis Penicillins Allergy (Severe, Verified 01/19/20 13:58) Anaphylaxis Past Medical History - Social History Smoking Status: Never Smoker Family History: None Endocrine Medical History: Reports: Hx Hypothyroidism Psychiatric Medical History: Denies: Hx Depression Past Surgical History: Reports: Hx Oral Surgery Physical Exam - Vital signs Vitals: Temp Pulse Resp BP Pulse Ox 97.5 F 70 18 119/81 96 04/20/20 04:58 04/20/20 04:58 04/20/20 04:58 04/20/20 04:58 04/20/20 04:58 Course - Re-evaluation Re-evalutation: 04/20/20 06:43 Given the history and physical examination with the labs ordered in triage as recorded, I will proceed with a right upper quadrant ultrasound of the abdomen to evaluate the possibility of gallbladder pathology. Patient's pain will be treated and I will provide fluids and nausea medications. 04/20/20 09:40 Ultrasound as recorded. Patient's pain is improved with the morphine. Vital signs are stable. Patient does have an elevated white blood cell count with minimal transaminitis. I did speak to the surgical team who will come to see the patient. Patient has anaphylaxis to penicillins. We will provide Levaquin and Flagyl. Patient last ate or drank last evening. - Vital Signs Vital signs: Temp Pulse Resp BP Pulse Ox 97.5 F 70 18 119/81 96 04/20/20 04:58 04/20/20 04:58 04/20/20 04:58 04/20/20 04:58 04/20/20 04:58 - Laboratory Result Diagrams: 04/20/20 05:12 04/20/20 05:12 Laboratory results interpreted by me: 04/20/20 04/20/20 04/20/20 05:12 05:12 05:41 WBC 12.3 H AST 47 H Ur Leukocyte Esterase SMALL H Discharge - Discharge Clinical Impression: Acute cholecystitis Condition: Fair Disposition: ADMITTED OBSERVATION Admitting Provider: Surgicalist Unit Admitted: Surgical Floor
--- NOTE | 2020-04-20 09:16 | RADIOLOGY REPORT (SQ) ---
EXAM DESCRIPTION: U/S ABDOMEN LIMITED W/O DOP IMAGES COMPLETED DATE/TIME: 04/20/2020 8:52 am REASON FOR STUDY: 15; RUQ abdominal pain COMPARISON: None. TECHNIQUE: Dynamic and static grayscale images acquired of the abdomen and recorded on PACS. Additio nal selected color Doppler and spectral images recorded. LIMITATIONS: None. FINDINGS: PANCREAS: No masses. Visualized pancreatic duct normal caliber. LIVER: Normal size Echo texture normal. No focal masses. LIVER VASCULATURE: Normal directional flow of the main portal vein and hepatic veins. GALLBLADDER: Gallstones. Trace amount of pericholecystic fluid. No gallbladder wall thickening. ULTRASOUND-DETECTED ERAZO'S SIGN: Negative. INTRAHEPATIC DUCTS AND COMMON DUCT: CBD and intrahepatic ducts normal caliber. No filling defects. INFERIOR VENA CAVA: Normal flow. AORTA: No aneurysm. RIGHT KIDNEY: Normal size. Normal echogenicity. No solid or suspicious masses. No hydronephros is. No calcifications. PERITONEAL AND RIGHT PLEURAL SPACE: No ascites or effusions. OTHER: No other significant findings. IMPRESSION: Cholelithiasis. Possible cholecystitis. TECHNICAL DOCUMENTATION: JOB ID: [id number] 2010 [employer]- All Rights Reserved Reading location - IP/workstation name: [email or web address]
[2020-04-20] MEDS ORDERED: LEVOFLOXACIN 750 MG/D5W RTU 750 MG/150 ML RTUPB IV ONE (09:41)
[2020-04-20] MEDS ORDERED: METRONIDAZOLE 500 MG/NS RTU 500 MG/100 ML RTUPB IV ONE (09:42)
[2020-04-20] MEDS ORDERED: BUPIVACAINE HCL 0.25 % INJ/PF (2.5 MG/1 ML) 30 ML VIAL ONE (10:40)
[2020-04-20] MEDS ORDERED: MORPHINE SULFATE 10 MG/ML INJ IV PRN ×2 (11:03→12:52)
[2020-04-20] MEDS ORDERED: DEXTROSE 5%-LACTATED RINGERS 1,000 ML IV PRN (11:03)
[2020-04-20] MEDS ORDERED: ONDANSETRON HCL INJ/PF 4 MG/2 ML SDV IV PRN (11:03)
[2020-04-20] MEDS ORDERED: MIDAZOLAM 2 MG/2 ML INJ ONE (11:33)
[2020-04-20] MEDS ORDERED: FENTANYL CITRATE INJ/PF 100 MCG/2 ML AMPUL ONE (11:33)
[2020-04-20] MEDS ORDERED: ONDANSETRON HCL INJ/PF 4 MG/2 ML SDV ONE (11:34)
[2020-04-20] MEDS ORDERED: PROPOFOL INJ 200 MG/20 ML VIAL IV ONE (11:34)
[2020-04-20] MEDS ORDERED: DEXAMETHASONE SOD PHOSPHATE INJ 4 MG/1 ML VIAL ONE (11:34)
[2020-04-20] MEDS ORDERED: MORPHINE SULFATE 10 MG/ML INJ ONE (11:34)
--- NOTE | 2020-04-20 12:23 | PDOC H&P ---
History of Present Illness Patient complains of: Epigastric and RUQ pain, nausea, vomiting History of Present Illness: NACHO VAZ is a 24 year old female with a one day h/o epigastric and RUQ pain, that she rates as severe. It is sharp and stabbing in nature. At its worst, it was 10/10. It radiates around to her right back. She has experienced nausea and vomiting. Last night she ate fast food and went to bed without symptoms. She was awoken in the middle of the night with epigastric and RUQ pain. She presented to the hospital because her pain was constant, and would not subside. nothing makes her pain better. Palpation and movement makes it worse. She denies fevers, chills, dizziness, blurry vision, headache, melena, hematochezia, or hematemesis. She is 2 weeks from a vaginal delivery. Past Medical History Cardiac Medical History: Reports: Hypertension Pulmonary Medical History: Reports: Asthma Endocrine Medical History: Reports: Hypothyroidism GI Medical History: Denies: Peptic Ulcer Disease Psychiatric Medical History: Denies: Depression Past Surgical History Past Surgical History: Reports: Other - recent vaginal delivery Social History Smoking Status: Never Smoker Electronic Cigarette use?: No Frequency of Alcohol Use: None Hx Recreational Drug Use: No Hx Prescription Drug Abuse: No Family History Family History: None Parental Family History Reviewed: Yes Children Family History Reviewed: Yes Sibling(s) Family History Reviewed.: Yes Medication/Allergy Home Medications: Albuterol Sulfate [Albuterol Sulfate Hfa] 8.5 gm IH PRN PRN 01/19/20 Fluticasone Propionate [Flovent Hfa 110 Mcg Inhalation Aerosol 12 gm] 120 puff IH PRN PRN 01/19/20 Levothyroxine Sodium [Synthroid] 100 mcg PO DAILY 01/19/20 Vit No.130/Iron/Folic [ Tablet] 1 each PO DAILY 01/19/20 Ibuprofen [Motrin 800 mg Tablet] 800 mg PO Q8HP PRN #20 tablet 04/08/20 Allergies/Adverse Reactions: amoxicillin Allergy (Severe, Verified 01/19/20 13:58) Anaphylaxis Penicillins Allergy (Severe, Verified 01/19/20 13:58) Anaphylaxis Review of Systems Constitutional: ABSENT: anorexia, chills, fatigue Eyes: ABSENT: visual disturbances Ears: ABSENT: hearing changes Nose, Mouth, and Throat: ABSENT: sore throat Cardiovascular: ABSENT: chest pain Respiratory: ABSENT: cough, dyspnea Gastrointestinal: PRESENT: abdominal pain, nausea, vomiting. ABSENT: bloating, hematemesis, hematochezia, melena Genitourinary: ABSENT: dysuria Musculoskeletal: PRESENT: back pain Integumentary: ABSENT: pruritus, rash Neurological: ABSENT: confusion, convulsions, dizziness Psychiatric: ABSENT: anxiety, depression Endocrine: ABSENT: cold intolerance, heat intolerance Hematologic/Lymphatic: ABSENT: easy bleeding, easy bruising Physical Exam Vital Signs: Temp Pulse Resp BP Pulse Ox 97.5 F 70 18 119/81 96 04/20/20 04:58 04/20/20 04:58 04/20/20 04:58 04/20/20 04:58 04/20/20 04:58 Intake & Output 04/19/20 04/20/20 04/21/20 06:59 06:59 06:59 Intake Total 1000 Balance 1000 Weight 81.1 kg General appearance: PRESENT: no acute distress, cooperative. ABSENT: disheveled Head exam: PRESENT: atraumatic, normocephalic Eye exam: PRESENT: EOMI, PERRLA. ABSENT: scleral icterus Mouth exam: PRESENT: moist, neck supple Neck exam: ABSENT: meningismus, tenderness, thyromegaly, tracheal deviation Respiratory exam: PRESENT: unlabored. ABSENT: tachypnea, wheezes Cardiovascular exam: ABSENT: tachycardia Pulses: PRESENT: normal radial pulses GI/Abdominal exam: PRESENT: Saldana's sign, soft, tenderness - RUQ tenderness. ABSENT: distended, rigid Rectal exam: PRESENT: deferred Extremities exam: PRESENT: clubbing Musculoskeletal exam: ABSENT: deformity Neurological exam: PRESENT: alert, awake, oriented to person, oriented to place, oriented to time, oriented to situation, CN II-XII grossly intact. ABSENT: motor sensory deficit Psychiatric exam: ABSENT: agitated, anxious, depressed Focused psych exam: ABSENT: delusional Skin exam: ABSENT: cyanosis, erythema, jaundice Results Laboratory Results: 04/20/20 05:12 04/20/20 05:12 04/20/20 04/20/20 04/20/20 05:12 05:12 05:41 WBC 12.3 H RBC 4.69 Hgb 14.9 Hct 43.2 MCV 92 MCH 31.8 MCHC 34.5 RDW 13.5 Plt Count 253 Seg Neutrophils % 66.3 Sodium 141.5 Potassium 4.3 Chloride 104 Carbon Dioxide 25 Anion Gap 13 BUN 15 Creatinine 0.78 Est GFR ( Amer) > 60 Glucose 100 Calcium 9.8 Total Bilirubin 0.5 AST 47 H Alkaline Phosphatase 97 Total Protein 7.5 Albumin 4.6 Lipase 139.9 Urine Color YELLOW Urine Appearance CLEAR Urine pH 5.0 Ur Specific [place] 1.021 Urine Protein NEGATIVE Urine Glucose (UA) NEGATIVE Urine Ketones NEGATIVE Urine Blood NEGATIVE Urine Nitrite NEGATIVE Ur Leukocyte Esterase SMALL H Urine WBC (Auto) 7 Urine RBC (Auto) 3 Impressions: Abdomen Ultrasound 04/20/20 06:41 IMPRESSION: Cholelithiasis. Possible cholecystitis. Assessment & Plan - Diagnosis (1) Acute cholecystitis Is this a current diagnosis for this admission?: Yes - Time Anticipated Discharge Disposition: Home, Self Care Anticipated Discharge Timeframe: within 24 hours - Plan Summary Plan Summary: 24 y/o F with RUQ and epigastric pain. She has evidence of acute cholecystitis on ultrasound and physical exam. I have offered her laparodscopic cholecystectomy as definitive treatment, and she has agreed. Risks/benefits discussed, informed consent obtained, and all questions answered. Jovi now.
[2020-04-20] MEDS ORDERED: PROMETHAZINE HCL INJ 25 MG/1 ML VIAL IV PRN ×2 (12:52)
[2020-04-20] MEDS ORDERED: FENTANYL CITRATE INJ/PF 100 MCG/2 ML AMPUL IV PRN ×3 (12:52)
[2020-04-20] MEDS ORDERED: MEPERIDINE HCL/PF INJ 25 MG/1 ML DISP.SYRIN IV PRN (12:52)
[2020-04-20] MEDS ORDERED: DIPHENHYDRAMINE HCL 50 MG/ML VIAL IV PRN (12:52)
[2020-04-20] MEDS ORDERED: OXYCODONE-ACETAMINOPHEN 5-325 MG TABLET PO PRN ×2 (12:52)
[2020-04-20] MEDS ORDERED: SUCCINYLCHOLINE CHLORIDE INJ 200 MG/10 ML VIAL ONE (13:47)
[2020-04-20] MEDS ORDERED: ROCURONIUM BROMIDE INJ 50 MG/5 ML VIAL IV ONE (13:47)
--- NOTE | 2020-04-20 14:19 | Operative Report ---
Nonrecallable Operative Report DATE OF SURGERY: 04/20/20 PREOPERATIVE DIAGNOSIS: Acute cholecystitis POSTOPERATIVE DIAGNOSIS: Same as above OPERATION: Laparoscopic cholecystectomy SURGEON: SABRINA CARTAGENA ANESTHESIA: GA TISSUE REMOVED OR ALTERED: Gallbladder COMPLICATIONS: None apparent ESTIMATED BLOOD LOSS: Minimal PROCEDURE: Drains/implants: None. Procedure in detail: After informed consent was obtained, the patient was brought into the operating room and laid in the supine position. The area of the abdomen was prepped and draped in a normal sterile fashion. A supraumbilical incision was created with a 15 blade scalpel. Dissection was carried through the subcutaneous tissues using sharp and blunt dissection. The linea alba fascia was incised sharply, the abdomen was entered sharply. The balloon trocar was inserted, and pneumoperitoneum was achieved. A subxiphoid 5 mm port was placed under direct laparoscopic visualization. 2 more 5 mm ports were placed in the right upper quadrant in similar fashion. Atraumatic graspers were placed through the 5 mm ports. The gallbladder was retracted cephalad and laterally. Dissection was begun in the triangle of [place]. There was a mild amount of inflammatory change and edema surrounding the gallbladder. The cystic duct and cystic artery were fully visualized and skeletonized, seeing the liver through the triangle. Once the critical view of safety was obtained, the cystic duct and cystic artery were clipped and cut with laparoscopic instruments. The gallbladder was then removed from the liver using Bovie electrocautery. The gallbladder was placed into an Endo Catch bag, and removed through the supraumbilical site. The camera was reinserted. The hilum was inspected. Was found to be free of any leakage of blood or bile. The abdomen was then copiously irrigated and suctioned until the effluent was clear. The hilum was again inspected, and found to be normal in appearance. Once this was completed, the 5 mm trochars were removed under direct laparoscopic visualization. The supraumbilical trocar was removed, and pneumoperitoneum was relieved. The supraumbilical fascia was closed using 0 Vicryl suture in [id number] fashion. The overlying skin was closed using 4-0 Vicryl Rapide suture in subcuticular fashion. Dressings were then placed, and the procedure was concluded. All sponge, instrument, and needle counts were correct x2. Condition: Stable.
[2020-04-20 18:44] VITALS: BP 135/77
--- NOTE | 2020-04-20 19:06 | PDOC DISCHARGE SUMMARY ---
General - Admit/Disc Date/PCP Admission Date/Primary Care Provider: 04/20/20 11:08 Discharge Date: 04/20/20 - Discharge Diagnosis Final Diagnosis: Acute cholecystitis - Assessment Summary: 24-year-old female with acute cholecystitis. She presents emergency department with right upper quadrant pain, nausea, and vomiting. She had an ultrasound showing thickening of her gallbladder wall, consistent with acute cholecystitis. The patient was taken the operating room for laparoscopic cholecystectomy. Surgery went very well. She was taken to the floor in stable condition. She began tolerating a diet, ambulating, and was requesting discharge home. At this time she has reached maximal hospital benefit, and is medically fit for discharge. - Additional Information Resuscitation Status: Full Code Discharge Diet: As Tolerated Discharge Activity: No Lifting Over 10 Pounds, No Lifting/Push/Pulling Prescriptions: Hydrocodone/Acetaminophen [Campbell 10-325 mg Tablet] 1 tab PO Q6HP PRN #14 tablet PRN Reason: For Pain Home Medications: Albuterol Sulfate [Albuterol Sulfate Hfa] 2 puff IH Q6HP PRN 01/19/20 Ibuprofen [Motrin 800 mg Tablet] 800 mg PO Q8HP PRN #20 tablet 04/08/20 Hydrocodone/Acetaminophen [Campbell 10-325 mg Tablet] 1 tab PO Q6HP PRN #14 tablet 04/20/20 Levothyroxine Sodium [Synthroid 0.05 mg Tablet] 0.05 mg PO Q6AM 04/20/20 Nifedipine [Nifedipine ER] 30 mg PO DAILY 04/20/20 Additional Information: Discharge home. Diet as tolerated. Activity: No lifting greater than 10 pounds x 2 weeks. Follow-up with [facility] in 7 to 10 days. Campbell 10/325 mg p.o. every 6 hours PRN for pain. Okay to resume normal home medications. Okay to shower normally starting on Monday. No tub baths or swimming pools x2 weeks. History of Present Illiness History of Present Illness: NACHO VAZ is a 24 year old female with a one day h/o epigastric and RUQ pain, that she rates as severe. It is sharp and stabbing in nature. At its worst, it was 10/10. It radiates around to her right back. She has experienced nausea and vomiting. Last night she ate fast food and went to bed without symptoms. She was awoken in the middle of the night with epigastric and RUQ pain. She presented to the hospital because her pain was constant, and would not subside. nothing makes her pain better. Palpation and movement makes it worse. She denies fevers, chills, dizziness, blurry vision, headache, melena, hematochezia, or hematemesis. She is 2 weeks from a vaginal delivery. Physical Exam Vital Signs: Temp Pulse Resp BP Pulse Ox 97.9 F 54 L 16 135/77 H 99 04/20/20 18:41 04/20/20 18:41 04/20/20 18:41 04/20/20 18:41 04/20/20 18:41 Intake & Output 04/19/20 04/20/20 04/21/20 06:59 06:59 06:59 Intake Total 5400 Output Total 10 Balance 5390 Weight 81.1 kg Results Laboratory Results: WBC 12.3 10^3/uL (4.0-10.5) H 04/20/20 05:12 RBC 4.69 10^6/uL (3.72-5.28) 04/20/20 05:12 Hgb 14.9 g/dL (12.0-15.5) 04/20/20 05:12 Hct 43.2 % (36.0-47.0) 04/20/20 05:12 MCV 92 fl (80-97) 04/20/20 05:12 MCH 31.8 pg (27.0-33.4) 04/20/20 05:12 MCHC 34.5 g/dL (32.0-36.0) 04/20/20 05:12 RDW 13.5 % (11.5-14.0) 04/20/20 05:12 Plt Count 253 10^3/uL (150-450) 04/20/20 05:12 Lymph % (Auto) 27.0 % (13-45) 04/20/20 05:12 [place] % (Auto) 4.0 % (3-13) 04/20/20 05:12 Eos % (Auto) 1.7 % (0-6) 04/20/20 05:12 Baso % (Auto) 1.0 % (0-2) 04/20/20 05:12 Absolute Neuts (auto) 8.1 10^3/uL (1.7-8.2) 04/20/20 05:12 Absolute Lymphs (auto) 3.3 10^3/uL (0.5-4.7) 04/20/20 05:12 Absolute Monos (auto) 0.5 10^3/uL (0.1-1.4) 04/20/20 05:12 Absolute Eos (auto) 0.2 10^3/uL (0.0-0.6) 04/20/20 05:12 Absolute Basos (auto) 0.1 10^3/uL (0.0-0.2) 04/20/20 05:12 Seg Neutrophils % 66.3 % (42-78) 04/20/20 05:12 Sodium 141.5 mmol/L (137-145) 04/20/20 05:12 Potassium 4.3 mmol/L (3.6-5.0) 04/20/20 05:12 Chloride 104 mmol/L (98-107) 04/20/20 05:12 Carbon Dioxide 25 mmol/L (22-30) 04/20/20 05:12 Anion Gap 13 (5-19) 04/20/20 05:12 BUN 15 mg/dL (7-20) 04/20/20 05:12 Creatinine 0.78 mg/dL (0.52-1.25) 04/20/20 05:12 Est GFR ( Amer) > 60 (>60) 04/20/20 05:12 Est GFR (MDRD) Non-Af > 60 (>60) 04/20/20 05:12 Glucose 100 mg/dL (75-110) 04/20/20 05:12 Calcium 9.8 mg/dL (8.4-10.2) 04/20/20 05:12 Total Bilirubin 0.5 mg/dL (0.2-1.3) 04/20/20 05:12 Direct Bilirubin 0.4 mg/dL (0.0-0.4) 04/20/20 05:12 Neonat Total Bilirubin Not Reportable 04/20/20 05:12 Neonat Direct Bilirubin Not Reportable 04/20/20 05:12 Neonat Indirect Bili Not Reportable 04/20/20 05:12 AST 47 U/L (14-36) H 04/20/20 05:12 ALT 32 U/L (<35) 04/20/20 05:12 Alkaline Phosphatase 97 U/L (38-126) 04/20/20 05:12 Total Protein 7.5 g/dL (6.3-8.2) 04/20/20 05:12 Albumin 4.6 g/dL (3.5-5.0) 04/20/20 05:12 Lipase 139.9 U/L (23-300) 04/20/20 05:12 Urine Color YELLOW 04/20/20 05:41 Urine Appearance CLEAR 04/20/20 05:41 Urine pH 5.0 (5.0-9.0) 04/20/20 05:41 Ur Specific [place] 1.021 04/20/20 05:41 Urine Protein NEGATIVE mg/dL (NEGATIVE) 04/20/20 05:41 Urine Glucose (UA) NEGATIVE mg/dL (NEGATIVE) 04/20/20 05:41 Urine Ketones NEGATIVE mg/dL (NEGATIVE) 04/20/20 05:41 Urine Blood NEGATIVE (NEGATIVE) 04/20/20 05:41 Urine Nitrite NEGATIVE (NEGATIVE) 04/20/20 05:41 Urine Bilirubin NEGATIVE (NEGATIVE) 04/20/20 05:41 Urine Urobilinogen NEGATIVE mg/dL (<2.0) 04/20/20 05:41 Ur Leukocyte Esterase SMALL (NEGATIVE) H 04/20/20 05:41 Urine WBC (Auto) 7 /HPF 04/20/20 05:41 Urine RBC (Auto) 3 /HPF 04/20/20 05:41 Squamous Epi Cells Auto 1 /HPF 04/20/20 05:41 Urine Mucus (Auto) OCC /LPF 04/20/20 05:41 Urine Ascorbic Acid NEGATIVE (NEGATIVE) 04/20/20 05:41 SARS-CoV-2 (PCR) NEGATIVE (NEGATIVE) 04/20/20 10:50 Impressions: Abdomen Ultrasound 04/20/20 06:41 IMPRESSION: Cholelithiasis. Possible cholecystitis.
== END 2020-04-20 20:27 | disposition home or self-care (01) ==
LOC: ER 04:43 → EH 11:08 → 4N 14:33
PROC: 0FT44ZZ Resection of Gallbladder, Percutaneous Endoscopic Approach (ICD-10-PCS; principal; 2020-04-20 12:00)
DX: O90.89 Other complications of the puerperium, not elsewhere classified (principal); K81.0 Acute cholecystitis; R10.13 Epigastric pain; R10.11 Right upper quadrant pain; R11.2 Nausea with vomiting, unspecified; Z79.899 Other long term (current) drug therapy; I10 Essential (primary) hypertension; J45.909 Unspecified asthma, uncomplicated; Z88.0 Allergy status to penicillin; Z20.828 Contact with and (suspected) exposure to other viral communicable diseases
CPT/HCPCS: 47562; 99285; 96361; 96374; 96375; 36415; 87040; 83690; 85025; 87635; 80053; 81001; 88304 ×2; 76705; 94799; 00790; G0378; J2250; J3490 ×2; J1100; J3010; J2270; J0330; J2405; J7030; J2704; C9803; 790

== ENCOUNTER 2020-05-03 22:03 | Observation (INO) | payer BC, OTHER ==
[2020-05-03] MEDS ORDERED: ONDANSETRON 4 MG TAB.RAPDIS PO ONE (23:13)
[2020-05-03] MEDS ORDERED: HYDROCODONE/ACETAMINOPHEN 5-325 MG TABLET PO ONE (23:13)
--- NOTE | 2020-05-03 23:15 | ER Document Report ---
ED Medical Screen (RME) - General Chief Complaint: Abdominal Pain Stated Complaint: RECENT GALLBLADDER REMOVAL Time Seen by Provider: 05/03/20 23:13 Mode of Arrival: Ambulatory Information source: Patient Notes: 24-year-old female presented to ED for complaint of right upper quadrant abdominal pain. She states she had her gallbladder removed 2 weeks ago. She states the pain is now worse than it was before the gallbladder was removed. She states it just started a couple days ago. She states that she stopped taking the narcotics 3 days after surgery because she was much better but now the pain is much worse. She is alert oriented respirations regular nonlabored speaking in full sentences. She states she did not take any oral pain medications at home because she did not want to just cover up the pain and did not get examined. She does have a history of asthma hypothyroid her blood pressure and a cholecystectomy. She states she does not smoke she very rarely drinks and does not use any illicit drugs. I have greeted and performed a rapid initial assessment of this patient. A comprehensive ED assessment and evaluation of the patient, analysis of test results and completion of medical decision making process will be conducted by an additional ED providers. TRAVEL OUTSIDE OF THE [place] IN LAST 30 DAYS: No - Related Data Allergies/Adverse Reactions: amoxicillin Allergy (Severe, Verified 01/19/20 13:58) Anaphylaxis Penicillins Allergy (Severe, Verified 01/19/20 13:58) Anaphylaxis Home Medications: levothroxyzine, nifinipine Past Medical History - Past Medical History Cardiac Medical History: Reports: Hx Hypertension Pulmonary Medical History: Reports: Hx Asthma Endocrine Medical History: Reports: Hx Hypothyroidism Psychiatric Medical History: Denies: Hx Depression Past Surgical History: Reports: Hx Oral Surgery, Other - recent vaginal delivery Physical Exam - Vital signs Vitals: Temp Pulse Resp BP Pulse Ox 98.2 F 59 L 18 141/90 H 97 05/03/20 22:10 05/03/20 22:10 05/03/20 22:10 05/03/20 22:10 05/03/20 22:10 Course - Vital Signs Vital signs: Temp Pulse Resp BP Pulse Ox 98.2 F 59 L 18 141/90 H 97 05/03/20 22:10 05/03/20 22:10 05/03/20 22:10 05/03/20 22:10 05/03/20 22:10
[2020-05-04 00:19] LABS: APPEARANCE,URINE CLEAR; BILIRUBIN,URINE NEGATIVE (NEGATIVE); COLOR,URINE AMBER; GLUCOSE, URINE NEGATIVE (NEGATIVE); KETONES,URINE NEGATIVE (NEGATIVE); LEUKOCYTE ESTERASE,URINE MODERATE (NEGATIVE); NITRITE,URINE NEGATIVE (NEGATIVE); PROTEIN,URINE NEGATIVE (NEGATIVE); URINE SPECIFIC GRAVITY 1.013
[2020-05-04 00:27] LABS: ABSOLUTE BASOPHILS # (AUTO) 0.1 10^3/uL (0.0-0.2); ABSOLUTE EOSINOPHILS # (AUTO) 0.2 10^3/uL (0.0-0.6); ABSOLUTE LYMPHOCYTES (AUTO) 1.6 10^3/uL (0.5-4.7); ABSOLUTE MONOCYTES (AUTO) 0.3 10^3/uL (0.1-1.4); ABSOLUTE NEUT (AUTO) 3.9 10^3/uL (1.7-8.2); BASOPHILS % (AUTO) 0.8 % (0-2); EOSINOPHILS % (AUTO) 2.7 % (0-6); HEMATOCRIT 42.2 % (36.0-47.0); HEMOGLOBIN 14.3 g/dL (12.0-15.5); LYMPHOCYTES % (AUTO) 26.4 % (13-45); MEAN CORPUSCULAR HEMOGLOBIN 31.4 pg (27.0-33.4); MEAN CORPUSCULAR HGB CONC 33.8 g/dL (32.0-36.0); MEAN CORPUSCULAR VOLUME 93 fl (80-97); MONOCYTES % (AUTO) 5.3 % (3-13); PLATELET COUNT 269 10^3/uL (150-450); RED BLOOD COUNT 4.54 10^6/uL (3.72-5.28); SEGMENTED NEUTROPHILS % (AUTO) 64.8 % (42-78); TOTAL CELLS COUNTED % (AUTO) 100 %; WHITE BLOOD COUNT 6.1 10^3/uL (4.0-10.5)
[2020-05-04 00:32] LABS: ALBUMIN 4.9 g/dL (3.5-5.0); ALKALINE PHOSPHATASE 209 U/L (38-126); ANION GAP 9 (5-19); BILIRUBIN,DIRECT 1.9 mg/dL (0.0-0.4); BILIRUBIN,TOTAL 2.6 mg/dL (0.2-1.3); BLOOD UREA NITROGEN 13 mg/dL (7-20); CARBON DIOXIDE 30 mmol/L (22-30); CHLORIDE 103 mmol/L (98-107); GLUCOSE 109 mg/dL (75-110); POTASSIUM 4.7 mmol/L (3.6-5.0); TOTAL PROTEIN 7.8 g/dL (6.3-8.2)
[2020-05-04 00:43] LABS: ASPARTATE AMINO TRANSFERASE 895 U/L (14-36)
[2020-05-04] MEDS ORDERED: NORMAL SALINE 1000 ML 1,000 ML IV ONE (01:25)
--- NOTE | 2020-05-04 01:28 | ER Document Report ---
ED GI/ - General Mode of Arrival: Ambulatory TRAVEL OUTSIDE OF THE [place] IN LAST 30 DAYS: No - Related Data Home Medications: levothroxyzine, nifinipine <HANS MIRANDA - Last Filed: 05/04/20 06:26> <TIANNA WEST - Last Filed: 05/04/20 11:14> - General Chief Complaint: Abdominal Pain Stated Complaint: RECENT GALLBLADDER REMOVAL Time Seen by Provider: 05/03/20 23:13 Notes: Patient is a 24-year-old female that comes to the emergency department for chief complaint of upper abdominal pain and mainly right upper quadrant abdominal pain. Patient had a cholecystectomy [address] Daniel at this [facility]. Patient states that she also had a normal vaginal delivery 1 month ago. Patient states that she was doing great postop, she was not taking pain medications after a couple of days, she states she felt normal until she started getting waves of pain early in the morning, this resolved, then the pain returned about 6 PM and became much more severe so she came in for evaluation. She admits to vomiting twice today. She denies fever. She is not currently breast-feeding, she denies lower abdominal pain, vaginal bleeding or discharge. Past medical history of hypertension, asthma, hypothyroidism. at bedside. (HANS MIRANDA) - Related Data Allergies/Adverse Reactions: amoxicillin Allergy (Severe, Verified 01/19/20 13:58) Anaphylaxis Penicillins Allergy (Severe, Verified 01/19/20 13:58) Anaphylaxis Past Medical History - General Information source: Patient - Social History Smoking Status: Never Smoker Frequency of alcohol use: None Drug Abuse: None Lives with: Family Family History: None - Past Medical History Cardiac Medical History: Reports: Hx Hypertension Pulmonary Medical History: Reports: Hx Asthma Endocrine Medical History: Reports: Hx Hypothyroidism Psychiatric Medical History: Denies: Hx Depression Past Surgical History: Reports: Hx Oral Surgery, Other - recent vaginal delivery <HANS MIRANDA - Last Filed: 05/04/20 06:26> Review of Systems - Review of Systems Constitutional: No symptoms reported EENT: No symptoms reported Cardiovascular: No symptoms reported Respiratory: No symptoms reported Gastrointestinal: See HPI Genitourinary: No symptoms reported Female Genitourinary: No symptoms reported Musculoskeletal: No symptoms reported Skin: No symptoms reported Hematologic/Lymphatic: No symptoms reported Neurological/Psychological: No symptoms reported <HANS MIRANDA - Last Filed: 05/04/20 06:26> Physical Exam <HANS MIRANDA - Last Filed: 05/04/20 06:26> - Vital signs Vitals: Temp Pulse Resp BP Pulse Ox 98.2 F 59 L 18 141/90 H 97 05/03/20 22:10 05/03/20 22:10 05/03/20 22:10 05/03/20 22:10 05/03/20 22:10 - Notes Notes: GENERAL: Alert, interacts well. No acute distress. HEAD: Normocephalic, atraumatic. EYES: Pupils equal, round, and reactive to light. Extraocular movements intact. ENT: Oral mucosa moist, tongue midline. Oropharynx unremarkable. Airway patent. NECK: Full range of motion. Supple. Trachea midline. No lymphadenopathy. LUNGS: Clear to auscultation bilaterally, no wheezes, rales, or rhonchi. No respiratory distress. Non-tender chest wall. HEART: Regular rate and rhythm. No murmur ABDOMEN: Epigastric tenderness and right upper quadrant pain is noted but without severe tenderness or guarding. No rebound tenderness. Laparoscopic wounds noted over the abdomen status post cholecystectomy, there is a partially open wound in the right upper quadrant which appears to have healed regardless, unremarkable otherwise, no signs of erythema, drainage, or infection. EXTREMITIES: Moves all 4 extremities spontaneously. No edema, normal radial and dorsalis pedis pulses bilaterally. No cyanosis. BACK: no cervical, thoracic, lumbar midline tenderness. No saddle anesthesia, normal distal neurovascular exam. Moves all extremities in full range of motion. NEUROLOGICAL: Alert and oriented x3. Normal speech. Cranial nerves II through XII grossly intact. Strength 5/5 in all extremities. PSYCH: Normal affect, normal mood. SKIN: Warm, dry, normal turgor. No rashes or lesions noted. (HANS MIRANDA) Course - Laboratory Result Diagrams: 05/03/20 23:50 05/03/20 23:50 <HANS MIRANDA - Last Filed: 05/04/20 06:26> - Laboratory Result Diagrams: 05/03/20 23:50 05/03/20 23:50 <TIANNA WEST - Last Filed: 05/04/20 11:14> - Re-evaluation Re-evalutation: Patient does not appear to be in distress, she is nontoxic in appearance, vital signs unremarkable. However she does have epigastric and right upper quadrant tenderness on exam. She does report vomiting as well. CBC unremarkable. Chemistry concerning with AST 895 and ALT 685. Direct bilirubin 1.9. Lipase unremarkable. CT without abscess, does show ductal dilatation (8mm) which is nonspecific after surgery. 05/04/20 03:30 I called and spoke with Dr. Daniel, patient's surgeon. Based on patient's presentation, symptoms, work-up his recommendation is that the patient needs an ERCP, he recommends patient be transferred for this. I discussed with patient and significant other, they are very agreeable with this. Patient did have additional pain and she was remedicated. 05/04/20 04:[address] Rodriguez, hospitalist at [facility]. He requests that we perform MRCP first, based on these results we can call them back, if the patient's clinical picture/work-up remains concerning he will be the accepting provider for patient to be transferred. MRCP has been ordered, Dr. Sagastume updated, discussed the plan with patient/significant other. (HANS MIRANDA) 05/04/20 10:09 MRCP shows mild intra and extrahepatic biliary duct dilation. Common bile duct is 7 to 8 mm in diameter. No filling defects seen. No stones seen. Charge nurse contacted me in regards to possibly having the patient stay here and be seen by Dr. Brooke. Called Dr. Brooke's office. Left message will wait for call back. 05/04/20 10:33 Received a call back from Dr. Brooke. He states that he will check his schedule and try to see if the patient can be fit into his schedule. 05/04/20 10:[address] Brooke and he can do the ERCP tonight. (TIANNA WEST) - Vital Signs Vital signs: Temp Pulse Resp BP Pulse Ox 98.2 F 72 16 131/68 H 97 05/03/20 22:10 05/04/20 08:56 05/04/20 08:56 05/04/20 08:56 05/04/20 08:56 - Laboratory Laboratory results interpreted by me: 05/03/20 05/03/20 23:50 23:50 Total Bilirubin 2.6 H Direct Bilirubin 1.9 H AST 895 H ALT 685 H Alkaline Phosphatase 209 H Urine Blood SMALL H Urine Urobilinogen 2.0 H Ur Leukocyte Esterase MODERATE H Discharge <HANS MIRANDA - Last Filed: 05/04/20 06:26> - Discharge Admitting Provider: Surgicalist Unit Admitted: Surgical Floor <TIANNA WEST - Last Filed: 05/04/20 11:14> - Discharge Clinical Impression: Epigastric pain, Elevated LFTs, Elevated bilirubin, Post-op pain Condition: Stable Disposition: ADMITTED INPATIENT
--- NOTE | 2020-05-04 02:56 | RADIOLOGY REPORT (SQ) ---
CT abdomen and pelvis with contrast on 05/04/2020 at 2:13 AM CLINICAL INDICATION: Postoperative epigastric and right upper quadrant pain, abnormal LFTs, abnormal bilirubin, recent cholecystectomy TECHNIQUE: Multiple axial images are obtained throughout the abdomen and pelvis following the administration of IV contrast, 91 mL of Omnipaque 350contrast was administered intravenously without complication. This exam was performed according to our departmental dose-optimization program, which includes automated exposure control, adjustment of the mA and/or kV according to patient size and/or use of iterative reconstruction technique. Total DLP is 1534.12 mGy*cm. COMPARISON: None FINDINGS: Abdomen: There is minimal basilar atelectasis. There is fatty infiltration of the liver. The patient is status post cholecystectomy. No abnormality is noted in the cholecystectomy bed. Common duct measures 8 mm which may just be related to postcholecystectomy state. If there is high clinical concern consider MRCP. Solid abdominal organs are otherwise unremarkable. There is no abdominal adenopathy. There is no free fluid or free air within the abdomen. The abdominal portion of the GI tract is unremarkable. Pelvis: Trace free fluid is noted in the pelvis that is likely physiologic. Pelvic organs appear unremarkable by CT. There is no pelvic adenopathy. Pelvic portion of the GI tract including the appendix is unremarkable. No bony abnormality is noted. IMPRESSION: 1. Mild biliary ductal dilatation likely just related to postcholecystectomy state but if clinically indicated consider MRCP to better evaluate. 2. Mild fatty infiltration of the liver.
[2020-05-04] MEDS ORDERED: ONDANSETRON HCL INJ/PF 4 MG/2 ML SDV IV ONE ×2 (03:33→07:20)
[2020-05-04] MEDS ORDERED: MORPHINE SULFATE 10 MG/ML INJ IV ONE ×2 (03:33→07:20)
[2020-05-04] MEDS ORDERED: NORMAL SALINE 1000 ML 1,000 ML IV PRN (06:30)
--- NOTE | 2020-05-04 08:29 | RADIOLOGY REPORT (SQ) ---
EXAM DESCRIPTION: MRI ABDOMEN WITHOUT IMAGES COMPLETED DATE/TIME: 05/04/2020 8:12 am REASON FOR STUDY: MRCP - eval post op pain, elevated LFTs and bili COMPARISON: CT done earlier the same day. TECHNIQUE: Noncontrast MRCP. Source and MIP images reviewed. LIMITATIONS: None. FINDINGS: GALLBLADDER: Surgically absent. INTRAHEPATIC DUCTS: Mild intrahepatic biliary ductal dilatation as demonstrated on CT. EXTRAHEPATIC DUCTS: Mild dilatation of the common bile duct. No filling defect or mass suggested. T he common bile duct measures 7 to 8 mm in greatest diameter. PANCREAS: Generally homogeneous, no gross mass or significant signal alteration. No surrounding infl ammatory changes or fluid. Pancreatic duct is normal. LIVER, SPLEEN, KIDNEYS, ADRENALS: No significant abnormality. VESSELS: No evidence of aneurysm. Grossly appropriate flow voids in the major vascular structures. LUNG BASES: Grossly clear. OTHER: No other significant finding. IMPRESSION: Mild intra and extrahepatic biliary ductal dilatation. No filling defects. TECHNICAL DOCUMENTATION: JOB ID: [id number] 2010 [employer]- All Rights Reserved Reading location - IP/workstation name: [email or web address]
[2020-05-04 11:08] LABS: ALBUMIN 4.4 g/dL (3.5-5.0); ALKALINE PHOSPHATASE 247 U/L (38-126); ANION GAP 10 (5-19); BILIRUBIN,DIRECT 2.9 mg/dL (0.0-0.4); BILIRUBIN,TOTAL 3.6 mg/dL (0.2-1.3); BLOOD UREA NITROGEN 10 mg/dL (7-20); CALCIUM 9.7 mg/dL (8.4-10.2); CARBON DIOXIDE 26 mmol/L (22-30); CHLORIDE 107 mmol/L (98-107); GLUCOSE 102 mg/dL (75-110); POTASSIUM 4.2 mmol/L (3.6-5.0); TOTAL PROTEIN 7.3 g/dL (6.3-8.2)
[2020-05-04 11:16] LABS: ASPARTATE AMINO TRANSFERASE 899 U/L (14-36)
--- NOTE | 2020-05-04 12:04 | PDOC H&P ---
History of Present Illness Admission Date/PCP: 05/04/20 11:26 Patient complains of: Abdominal pain nausea and vomiting History of Present Illness: NACHO VAZ is a 24 year old female Presents emergency department via ground rescue complaining of acute onset 24 hours ago of abdominal pain, decreased p.o. intake, nausea vomiting and dark urine. Patient symptoms subsided then increase intensity late last night. She came to the emergency department, was found to have abdominal tenderness, elevated liver function studies. CT scan of abdomen and pelvis showed dilated bile ducts, minimal fluid in the subhepatic space. An MRI scan was recommended by [facility] which demonstrated dilated intra and extrahepatic bile ducts, with the common bile duct of approximately [address] scan findings. Arrangements were being made to transfer the patient to [facility], however a call was put into Dr. Sidney Brooke who agreed to perform ERCP at [facility]. Patient is being admitted by the surgical service, kept n.p.o., having a Covid test, and started on IV antibiotics. Past Medical History Past Medical History: Recent delivery; lap alexis [address] Daniel; asthma, hypothyroidism, hypertension Cardiac Medical History: Reports: Hypertension Pulmonary Medical History: Reports: Asthma Endocrine Medical History: Reports: Hypothyroidism Psychiatric Medical History: Denies: Depression Past Surgical History Past Surgical History: Reports: Other - Laparoscopic cholecystectomy recent vaginal delivery Social History Information Source: Patient Lives with: Family Smoking Status: Never Smoker Frequency of Alcohol Use: None Hx Recreational Drug Use: No Hx Prescription Drug Abuse: No Family History Parental Family History Reviewed: No Children Family History Reviewed: No Sibling(s) Family History Reviewed.: No Medication/Allergy Home Medications: Albuterol Sulfate [Albuterol Sulfate Hfa] 2 puff IH Q6HP PRN 01/19/20 Ibuprofen [Motrin 800 mg Tablet] 800 mg PO Q8HP PRN #20 tablet 04/08/20 Hydrocodone/Acetaminophen [[place] 10-325 mg Tablet] 1 tab PO Q6HP PRN #14 tablet 04/20/20 Levothyroxine Sodium [Synthroid 0.05 mg Tablet] 0.05 mg PO Q6AM 04/20/20 Nifedipine [Nifedipine ER] 30 mg PO DAILY 04/20/20 Allergies/Adverse Reactions: amoxicillin Allergy (Severe, Verified 01/19/20 13:58) Anaphylaxis Penicillins Allergy (Severe, Verified 01/19/20 13:58) Anaphylaxis Review of Systems Constitutional: PRESENT: as per HPI Eyes: ABSENT: visual disturbances Ears: ABSENT: hearing changes Cardiovascular: ABSENT: chest pain, dyspnea on exertion, edema, orthropnea, palpitations Respiratory: ABSENT: cough, hemoptysis Gastrointestinal: PRESENT: as per HPI Genitourinary: PRESENT: other - Admits to dark urine. ABSENT: dysuria, hematuria Musculoskeletal: ABSENT: joint swelling Integumentary: ABSENT: rash, wounds Neurological: ABSENT: abnormal gait, abnormal speech, confusion, dizziness, focal weakness, syncope Psychiatric: ABSENT: anxiety, depression, homidical ideation, suicidal ideation Endocrine: ABSENT: cold intolerance, heat intolerance, polydipsia, polyuria Physical Exam Vital Signs: Temp Pulse Resp BP Pulse Ox 98.2 F 72 16 131/68 H 97 05/03/20 22:10 05/04/20 08:56 05/04/20 08:56 05/04/20 08:56 05/04/20 08:56 Intake & Output 05/03/20 05/04/20 05/05/20 06:59 06:59 06:59 Intake Total 1000 Balance 1000 Weight 80.4 kg General appearance: PRESENT: mild distress Head exam: PRESENT: normocephalic Eye exam: PRESENT: EOMI Mouth exam: PRESENT: dry mucosa Neck exam: PRESENT: full ROM Respiratory exam: PRESENT: clear to auscultation scott Cardiovascular exam: PRESENT: RRR Pulses: PRESENT: normal carotid pulses, normal radial pulses, normal femoral pulses Breast: PRESENT: Normal GI/Abdominal exam: PRESENT: other - Operative incisions covered with Band-Aids and skin glue; tender right upper quadrant with moderate guarding Rectal exam: PRESENT: deferred Extremities exam: PRESENT: full ROM Musculoskeletal exam: PRESENT: full ROM Neurological exam: PRESENT: oriented to person, oriented to place, oriented to time, oriented to situation Psychiatric exam: PRESENT: appropriate affect Results Laboratory Results: 05/03/20 23:50 05/04/20 10:31 05/03/20 05/03/20 05/03/20 23:50 23:50 23:50 WBC 6.1 RBC 4.54 Hgb 14.3 Hct 42.2 MCV 93 MCH 31.4 MCHC 33.8 RDW 13.0 Plt Count 269 Seg Neutrophils % 64.8 Sodium 142.4 Potassium 4.7 Chloride 103 Carbon Dioxide 30 Anion Gap 9 BUN 13 Creatinine 0.95 Est GFR ( Amer) > 60 Glucose 109 Calcium 10.0 Total Bilirubin 2.6 H AST 895 H Alkaline Phosphatase 209 H Total Protein 7.8 Albumin 4.9 Lipase 231.0 Serum HCG, Qual NEGATIVE Urine Color Urine Appearance Urine pH Ur Specific [place] Urine Protein Urine Glucose (UA) Urine Ketones Urine Blood Urine Nitrite Ur Leukocyte Esterase Urine WBC (Auto) Urine RBC (Auto) 05/03/20 05/04/20 23:50 10:31 WBC RBC Hgb Hct MCV MCH MCHC RDW Plt Count Seg Neutrophils % Sodium 142.7 Potassium 4.2 Chloride 107 Carbon Dioxide 26 Anion Gap 10 BUN 10 Creatinine 0.88 Est GFR ( Amer) > 60 Glucose 102 Calcium 9.7 Total Bilirubin 3.6 H AST 899 H Alkaline Phosphatase 247 H Total Protein 7.3 Albumin 4.4 Lipase Serum HCG, Qual Urine Color MARCIA Urine Appearance CLEAR Urine pH 6.0 Ur Specific [place] 1.013 Urine Protein NEGATIVE Urine Glucose (UA) NEGATIVE Urine Ketones NEGATIVE Urine Blood SMALL H Urine Nitrite NEGATIVE Ur Leukocyte Esterase MODERATE H Urine WBC (Auto) 8 Urine RBC (Auto) 3 Impressions: Abdomen/Pelvis CT 05/04/20 01:25 IMPRESSION: 1. Mild biliary ductal dilatation likely just related to postcholecystectomy state but if clinically indicated consider MRCP to better evaluate. 2. Mild fatty infiltration of the liver. Abdomen MRI 05/04/20 04:22 IMPRESSION: Mild intra and extrahepatic biliary ductal dilatation. No filling defects. Assessment & Plan - Diagnosis (1) Abdominal pain Qualifiers: Abdominal location: right upper quadrant Qualified Code(s): R10.11 - Right upper quadrant pain Is this a current diagnosis for this admission?: Yes Plan: Impression: Post laparoscopic abdominal pain, nausea vomiting elevated function studies and CT scanning and MRI demonstrating dilated intra and extrahepatic biliary ducts consistent with pain, bile duct stone versus sludge Recommendations: 1. Will admit, keep n.p.o., on IV fluids and empiric antibiotic therapy 2. Anticipate ERCP, sludge extraction by Dr. Sidney Brooke later today. This was discussed with patient, her and her [id number] on cell phone from [place]. 3. We will obtain a rapid Covid test. (2) Elevated LFTs Is this a current diagnosis for this admission?: Yes (3) Status post laparoscopic cholecystectomy Is this a current diagnosis for this admission?: Yes (4) Hypothyroidism Is this a current diagnosis for this admission?: Yes (5) Hypertension Is this a current diagnosis for this admission?: Yes (6) Asthma Is this a current diagnosis for this admission?: Yes (7) Gestational hypertension Qualifiers: Is this a current diagnosis for this admission?: Yes - Time Time Spent: 50 to 70 Minutes Critical Time spent with patient: Less than 15 minutes Smoking Cessation Education: 3 to 10 minutes Medications reviewed and adjusted accordingly: Yes Anticipated Discharge Disposition: Home, Self Care Anticipated Discharge Timeframe: within 48 hours - Inpatient Certification Based on my medical assessment, after consideration of the patient's comorbidities, presenting symptoms, or acuity I expect that the services needed warrant INPATIENT care.: Yes I certify that my determination is in accordance with my understanding of Medicare's requirements for reasonable and necessary INPATIENT services [42 CFR 412.3e].: Yes Medical Necessity: Need For IV Fluids, Need for Pain Control, Need for IV Antibiotics, Need for Surgery
[2020-05-04] MEDS ORDERED: ONDANSETRON HCL INJ/PF 4 MG/2 ML SDV IV PRN ×2 (12:05→20:00)
[2020-05-04] MEDS: KETOROLAC TROMETHAMINE INJ/PF 30 MG/1 ML SDV IV PRN (13:01)
[2020-05-04] MEDS: CIPROFLOXACIN 400 MG/D5W RTU 400 MG/200 ML RTUPB IV SCH ×2 (13:02→23:45)
[2020-05-04] MEDS ORDERED: FENTANYL CITRATE INJ/PF 100 MCG/2 ML AMPUL ONE (19:31)
[2020-05-04] MEDS ORDERED: MIDAZOLAM 2 MG/2 ML INJ ONE (19:32)
[2020-05-04] MEDS ORDERED: ONDANSETRON HCL INJ/PF 4 MG/2 ML SDV ONE (19:32)
[2020-05-04] MEDS ORDERED: PROPOFOL INJ 200 MG/20 ML VIAL IV ONE (19:32)
[2020-05-04] MEDS ORDERED: DEXAMETHASONE SOD PHOSPHATE INJ 4 MG/1 ML VIAL ONE (19:32)
[2020-05-04] MEDS ORDERED: PROMETHAZINE HCL INJ 25 MG/1 ML VIAL IV PRN ×2 (20:00)
[2020-05-04] MEDS ORDERED: OXYCODONE-ACETAMINOPHEN 5-325 MG TABLET PO PRN ×2 (20:00)
[2020-05-04] MEDS ORDERED: DIPHENHYDRAMINE HCL 50 MG/ML VIAL IV PRN (20:00)
[2020-05-04] MEDS ORDERED: FENTANYL CITRATE INJ/PF 100 MCG/2 ML AMPUL IV PRN ×3 (20:00)
[2020-05-04] MEDS ORDERED: MORPHINE SULFATE 10 MG/ML INJ IV PRN (20:00)
[2020-05-04] MEDS ORDERED: MEPERIDINE HCL/PF INJ 25 MG/1 ML DISP.SYRIN IV PRN (20:00)
--- NOTE | 2020-05-04 20:22 | PDOC CONSULTATION ---
Consultation Consult Date: 05/04/20 Provider Consulted: ANIL LYMAN History of Present Illness Admission Date/PCP: 05/04/20 11:26 History of Present Illness: NACHO VAZ is a 24 year old female Patient who was admitted to the emergency room during the night with acute onset epigastric pain. She had a cholecystectomy 2 weeks ago and had a baby a few months ago. She developed acute abdominal pain which woke her up during the night on 05/03/2020. The pain lasted for a few hours associated with nausea and vomiting. It went away for about 8 hours but came back last night hence presentation to the hospital. On admission her bilirubin was 3 with elevated transaminases and alkaline phosphatase. Her lipase was normal. She had an MRI that showed dilated intra and extrahepatic ducts with no filling defects. Her gallbladder specimen did show gallstones. She has no previous history of liver disease Past Medical History Cardiac Medical History: Reports: Hypertension Pulmonary Medical History: Reports: Asthma Endocrine Medical History: Reports: Hypothyroidism Psychiatric Medical History: Denies: Depression Past Surgical History Past Surgical History: Reports: Other - Laparoscopic cholecystectomy recent vaginal delivery Social History Lives with: Family Smoking Status: Unknown if Ever Smoked Frequency of Alcohol Use: Rare Hx Recreational Drug Use: No Hx Prescription Drug Abuse: No - Advance Directive Resuscitation Status: Full Code Family History Family History: None Parental Family History Reviewed: No Children Family History Reviewed: NA Sibling(s) Family History Reviewed.: NA Medication/Allergy Home Medications: Albuterol Sulfate [Albuterol Sulfate Hfa] 2 puff IH Q6HP PRN 01/19/20 Levothyroxine Sodium [Synthroid 0.05 mg Tablet] 0.05 mg PO Q6AM 04/20/20 Nifedipine [Nifedipine ER] 30 mg PO DAILY 04/20/20 Allergies/Adverse Reactions: amoxicillin Allergy (Severe, Verified 01/19/20 13:58) Anaphylaxis Penicillins Allergy (Severe, Verified 01/19/20 13:58) Anaphylaxis Review of Systems All systems: reviewed and no additional remarkable complaints except as stated Physical Exam Vital Signs: Temp Pulse Resp BP Pulse Ox 98.3 F 61 16 126/69 H 98 05/04/20 17:47 05/04/20 17:47 05/04/20 17:47 05/04/20 17:47 05/04/20 17:47 Intake & Output 05/03/20 05/04/20 05/05/20 06:59 06:59 06:59 Intake Total 1000 1200 Balance 1000 1200 Weight 80.4 kg Exam: General: Patient is alert and looks well. HEENT: There is no pallor but she is jaundiced. PERRLA. Oropharynx normal Respiratory: No chest deformity. No respiratory distress. Chest wall palpitation was unremarkable. Breath sounds were normal Cardiovascular: Heart sounds 1 and 2 normal with no murmurs. Abdominal: Not distended. Soft and nontender. Liver and spleen not palpable. No ascites demonstrated. Bowel sounds active. Rectal examination was deferred. Extremities: No edema Neurological: Alert and oriented x4. Grossly nonfocal. Normal speech Skin: No significant rash Psychological: Normal affect Results Laboratory Results: 05/03/20 23:50 05/04/20 10:31 05/03/20 05/03/20 05/03/20 23:50 23:50 23:50 WBC 6.1 RBC 4.54 Hgb 14.3 Hct 42.2 MCV 93 MCH 31.4 MCHC 33.8 RDW 13.0 Plt Count 269 Seg Neutrophils % 64.8 Sodium 142.4 Potassium 4.7 Chloride 103 Carbon Dioxide 30 Anion Gap 9 BUN 13 Creatinine 0.95 Est GFR ( Amer) > 60 Glucose 109 Calcium 10.0 Total Bilirubin 2.6 H AST 895 H Alkaline Phosphatase 209 H Total Protein 7.8 Albumin 4.9 Lipase 231.0 Serum HCG, Qual NEGATIVE Urine Color Urine Appearance Urine pH Ur Specific [place] Urine Protein Urine Glucose (UA) Urine Ketones Urine Blood Urine Nitrite Ur Leukocyte Esterase Urine WBC (Auto) Urine RBC (Auto) 05/03/20 05/04/20 23:50 10:31 WBC RBC Hgb Hct MCV MCH MCHC RDW Plt Count Seg Neutrophils % Sodium 142.7 Potassium 4.2 Chloride 107 Carbon Dioxide 26 Anion Gap 10 BUN 10 Creatinine 0.88 Est GFR ( Amer) > 60 Glucose 102 Calcium 9.7 Total Bilirubin 3.6 H AST 899 H Alkaline Phosphatase 247 H Total Protein 7.3 Albumin 4.4 Lipase Serum HCG, Qual Urine Color MARCIA Urine Appearance CLEAR Urine pH 6.0 Ur Specific [place] 1.013 Urine Protein NEGATIVE Urine Glucose (UA) NEGATIVE Urine Ketones NEGATIVE Urine Blood SMALL H Urine Nitrite NEGATIVE Ur Leukocyte Esterase MODERATE H Urine WBC (Auto) 8 Urine RBC (Auto) 3 Impressions: Abdomen/Pelvis CT 05/04/20 01:25 IMPRESSION: 1. Mild biliary ductal dilatation likely just related to postcholecystectomy state but if clinically indicated consider MRCP to better evaluate. 2. Mild fatty infiltration of the liver. Abdomen MRI 05/04/20 04:22 IMPRESSION: Mild intra and extrahepatic biliary ductal dilatation. No filling defects. Assessment & Plan - Diagnosis (1) Epigastric pain Is this a current diagnosis for this admission?: Yes Plan: Post cholecystectomy abdominal pain associated with jaundice and abnormal MRCP suggestive of choledocholithiasis. The need for an ERCP including the risk and benefit was explained to the patient and she is in agreement. (3) Abnormal findings on imaging of biliary tract Is this a current diagnosis for this admission?: Yes (4) Elevated LFTs Is this a current diagnosis for this admission?: Yes
--- NOTE | 2020-05-04 20:24 | Operative Report ---
Operative Report DATE OF SURGERY: 05/04/20 Operative Report: Pre-op diagnosis: Abdominal pain, jaundice, and abnormal MRCP Post-op diagnosis: Common bile duct sludge Surgery: ERCP with sphincterotomy and balloon sludge extraction Medications: As per anesthesia Tissue removed: None Procedure: After informed consent obtained from patient, patient was placed under general anesthesia. The ERCP endoscope was then inserted into the esophagus blindly and advanced into the stomach. The duodenum was entered and the ampulla was identified. Using the triple-lumen sphincterotomy catheter the pancreatic duct was initially cannulated and a partial pancreatogram was obtained. Common bile duct was then freely cannulated. A cholangiogram was obtained . A good sized sphincterotomy was then performed using the endocut mode. The catheter was removed over the guidewire before a 9-12 mm balloon catheter was inserted. The balloon was inflated to 12 mm in the proximal common bile duct and pulled down the duct. The duct was swept two more times. A balloon occlusion cholangiogram was normal. Patient tolerated procedure well. Findings Common bile duct: Moderate amount of sludge was extracted. Intrahepatic ducts: Normal Pancreatic duct: Partial pancreatogram was normal. Plan: Follow LFTs. OPERATION: .
[2020-05-04] MEDS ORDERED: CIPROFLOXACIN 400 MG/D5W RTU 400 MG/200 ML RTUPB IV ONE (23:32)
[2020-05-04] MEDS: RINGERS SOLUTION,LACTATED 1,000 ML IV PRN (23:51)
[2020-05-05] MEDS: RINGERS SOLUTION,LACTATED 1,000 ML IV PRN (07:00)
[2020-05-05 07:22] LABS: ALBUMIN 4.3 g/dL (3.5-5.0); ALKALINE PHOSPHATASE 283 U/L (38-126); ASPARTATE AMINO TRANSFERASE 412 U/L (14-36); BILIRUBIN,DIRECT 0.9 mg/dL (0.0-0.4); BILIRUBIN,TOTAL 1.7 mg/dL (0.2-1.3); TOTAL PROTEIN 6.9 g/dL (6.3-8.2)
[2020-05-05] MEDS: KETOROLAC TROMETHAMINE INJ/PF 30 MG/1 ML SDV IV PRN (08:41)
--- NOTE | 2020-05-05 08:54 | PDOC DISCHARGE SUMMARY ---
General - Admit/Disc Date/PCP Admission Date/Primary Care Provider: 05/04/20 11:26 Discharge Date: 05/05/20 - Discharge Diagnosis Final Diagnosis: Retained common duct stone with elevated liver function studies - Assessment Summary: The patient is a 24-year-old white female, 1 month , 2-week status post laparoscopic cholecystectomy by Dr. Marco Daniel for cholecystitis with cholelithiasis. Is to the emergency department complaining of abdominal pain, nausea vomiting and right upper quadrant tenderness. Her stools were dark. She was evaluated and found to have elevated liver function studies, and a CT scan which showed slightly dilated intra and extrahepatic biliary ducts. An MRCP was performed which confirmed the same. Dr. Sidney Brooke consulted and patient was admitted to the surgical service for hydration, and observation. She was subsequently taken to the operating room where she underwent ERCP, stone extraction, and sphincterotomy. She tolerated procedure well, and had resolution of her symptoms. The following morning her total bili Claude had come down from the 4 range to 1.7. Other liver function studies were tapering. Had a completely benign abdomen and was tolerating a diet and felt ready for discharge home. Patient will be discharged in the care of the family, follow-up with Marco Daniel MD, at [place], take Tylenol Motrin as needed pain, shower, and resume any home medications. - Additional Information Resuscitation Status: Full Code Discharge Activity: Activity As Tolerated - Obtain liver function studies prior to appointment with Dr. Daniel at [facility] in 1 to 2 weeks Home Medications: Albuterol Sulfate [Albuterol Sulfate Hfa] 2 puff IH Q6HP PRN 01/19/20 Levothyroxine Sodium [Synthroid 0.05 mg Tablet] 0.05 mg PO Q6AM 04/20/20 Nifedipine [Nifedipine ER] 30 mg PO DAILY 04/20/20 History of Present Illiness History of Present Illness: NACHO VAZ is a 24 year old female Presents emergency department via ground rescue complaining of acute onset 24 hours ago of abdominal pain, decreased p.o. intake, nausea vomiting and dark urine. Patient symptoms subsided then increase intensity late last night. She came to the emergency department, was found to have abdominal tenderness, elevated liver function studies. CT scan of abdomen and pelvis showed dilated bile ducts, minimal fluid in the subhepatic space. An MRI scan was recommended by [facility] which demonstrated dilated intra and extrahepatic bile ducts, with the common bile duct of approximately [address] scan findings. Arrangements were being made to transfer the patient to [facility], however a call was put into Dr. Sidney Brooke who agreed to perform ERCP at [facility]. Patient is being admitted by the surgical service, kept n.p.o., having a Covid test, and started on IV antibiotics. Physical Exam Vital Signs: Temp Pulse Resp BP Pulse Ox 98.2 F 55 L 16 122/67 95 05/05/20 07:26 05/05/20 07:26 05/05/20 07:26 05/05/20 07:26 05/05/20 07:26 Intake & Output 05/04/20 05/05/20 05/06/20 06:59 06:59 06:59 Intake Total 1000 3750 Output Total 550 Balance 1000 3200 Weight 80.4 kg 83.461 kg Results Laboratory Results: WBC 6.1 10^3/uL (4.0-10.5) 05/03/20 23:50 RBC 4.54 10^6/uL (3.72-5.28) 05/03/20 23:50 Hgb 14.3 g/dL (12.0-15.5) 05/03/20 23:50 Hct 42.2 % (36.0-47.0) 05/03/20 23:50 MCV 93 fl (80-97) 05/03/20 23:50 MCH 31.4 pg (27.0-33.4) 05/03/20 23:50 MCHC 33.8 g/dL (32.0-36.0) 05/03/20 23:50 RDW 13.0 % (11.5-14.0) 05/03/20 23:50 Plt Count 269 10^3/uL (150-450) 05/03/20 23:50 Lymph % (Auto) 26.4 % (13-45) 05/03/20 23:50 [place] % (Auto) 5.3 % (3-13) 05/03/20 23:50 Eos % (Auto) 2.7 % (0-6) 05/03/20 23:50 Baso % (Auto) 0.8 % (0-2) 05/03/20 23:50 Absolute Neuts (auto) 3.9 10^3/uL (1.7-8.2) 05/03/20 23:50 Absolute Lymphs (auto) 1.6 10^3/uL (0.5-4.7) 05/03/20 23:50 Absolute Monos (auto) 0.3 10^3/uL (0.1-1.4) 05/03/20 23:50 Absolute Eos (auto) 0.2 10^3/uL (0.0-0.6) 05/03/20 23:50 Absolute Basos (auto) 0.1 10^3/uL (0.0-0.2) 05/03/20 23:50 Seg Neutrophils % 64.8 % (42-78) 05/03/20 23:50 Sodium 142.7 mmol/L (137-145) 05/04/20 10:31 Potassium 4.2 mmol/L (3.6-5.0) 05/04/20 10:31 Chloride 107 mmol/L (98-107) 05/04/20 10:31 Carbon Dioxide 26 mmol/L (22-30) 05/04/20 10:31 Anion Gap 10 (5-19) 05/04/20 10:31 BUN 10 mg/dL (7-20) 05/04/20 10:31 Creatinine 0.88 mg/dL (0.52-1.25) 05/04/20 10:31 Est GFR ( Amer) > 60 (>60) 05/04/20 10:31 Est GFR (MDRD) Non-Af > 60 (>60) 05/04/20 10:31 Glucose 102 mg/dL (75-110) 05/04/20 10:31 Calcium 9.7 mg/dL (8.4-10.2) 05/04/20 10:31 Total Bilirubin 1.7 mg/dL (0.2-1.3) H 05/05/20 06:41 Direct Bilirubin 0.9 mg/dL (0.0-0.4) H 05/05/20 06:41 Neonat Total Bilirubin Not Reportable 05/05/20 06:41 Neonat Direct Bilirubin Not Reportable 05/05/20 06:41 Neonat Indirect Bili Not Reportable 05/05/20 06:41 AST 412 U/L (14-36) H 05/05/20 06:41 ALT 729 U/L (<35) H 05/05/20 06:41 Alkaline Phosphatase 283 U/L (38-126) H 05/05/20 06:41 Total Protein 6.9 g/dL (6.3-8.2) 05/05/20 06:41 Albumin 4.3 g/dL (3.5-5.0) 05/05/20 06:41 Lipase 231.0 U/L (23-300) 05/03/20 23:50 Serum HCG, Qual NEGATIVE (NEGATIVE) 05/03/20 23:50 Urine Color MARCIA 05/03/20 23:50 Urine Appearance CLEAR 05/03/20 23:50 Urine pH 6.0 (5.0-9.0) 05/03/20 23:50 Ur Specific [place] 1.013 05/03/20 23:50 Urine Protein NEGATIVE mg/dL (NEGATIVE) 05/03/20 23:50 Urine Glucose (UA) NEGATIVE mg/dL (NEGATIVE) 05/03/20 23:50 Urine Ketones NEGATIVE mg/dL (NEGATIVE) 05/03/20 23:50 Urine Blood SMALL (NEGATIVE) H 05/03/20 23:50 Urine Nitrite NEGATIVE (NEGATIVE) 05/03/20 23:50 Urine Bilirubin NEGATIVE (NEGATIVE) 05/03/20 23:50 Urine Urobilinogen 2.0 mg/dL (<2.0) H 05/03/20 23:50 Ur Leukocyte Esterase MODERATE (NEGATIVE) H 05/03/20 23:50 Urine WBC (Auto) 8 /HPF 05/03/20 23:50 Urine RBC (Auto) 3 /HPF 05/03/20 23:50 Urine Bacteria (Auto) TRACE /HPF 05/03/20 23:50 Squamous Epi Cells Auto 1 /HPF 05/03/20 23:50 Urine Mucus (Auto) RARE /LPF 05/03/20 23:50 Urine Ascorbic Acid NEGATIVE (NEGATIVE) 05/03/20 23:50 SARS-CoV-2 (PCR) NEGATIVE (NEGATIVE) 05/04/20 13:07 Impressions: Abdomen/Pelvis CT 05/04/20 01:25 IMPRESSION: 1. Mild biliary ductal dilatation likely just related to postcholecystectomy state but if clinically indicated consider MRCP to better evaluate. 2. Mild fatty infiltration of the liver. Abdomen MRI 05/04/20 04:22 IMPRESSION: Mild intra and extrahepatic biliary ductal dilatation. No filling defects.
--- NOTE | 2020-05-05 09:14 | RADIOLOGY REPORT (SQ) ---
EXAM DESCRIPTION: ENDO CATH/BILIARY DUCT; NO CHG FLUORO IMAGES COMPLETED DATE/TIME: 05/04/2020 8:31 pm REASON FOR STUDY: ERCP COMPARISON: MRI abdomen 05/04/2020 CT abdomen pelvis 05/04/2020 FLUOROSCOPY TIME: 2.4 minutes 9 digital fluoroscopic images saved to PACS. TECHNIQUE: Intra-operative images acquired during surgical procedure to evaluate progress. NUMBER OF IMAGES: 9 digital fluoroscopic images LIMITATIONS: None. FINDINGS: Intra procedural imaging and fluoroscopy during ERCP performed by Dr. Edwardo Farias post cholecystectomy. Visualized pancreatic duct normal caliber. Contrast injected into the common bile duct. Common bile duct was swept with a balloon tipped cathet er. Final film demonstrates no biliary tree filling defects. Spillage of contrast into the duodenum . IMPRESSION: IMAGE(S) OBTAINED DURING PROCEDURE. COMMENT: Quality ID 145: Final reports for procedures using fluoroscopy that document radiation exp osure indices, or exposure time and number of fluorographic images (if radiation exposure indices are not available) Please consult full operative report of the attending physician for description of the procedure. TECHNICAL DOCUMENTATION: JOB ID: [id number] 2010 [employer]- All Rights Reserved Reading location - IP/workstation name: [email or web address]
--- NOTE | 2020-05-05 09:15 | RADIOLOGY REPORT (SQ) ---
EXAM DESCRIPTION: ENDO CATH/BILIARY DUCT; NO CHG FLUORO IMAGES COMPLETED DATE/TIME: 05/04/2020 8:31 pm REASON FOR STUDY: ERCP COMPARISON: MRI abdomen 05/04/2020 CT abdomen pelvis 05/04/2020 FLUOROSCOPY TIME: 2.4 minutes 9 digital fluoroscopic images saved to PACS. TECHNIQUE: Intra-operative images acquired during surgical procedure to evaluate progress. NUMBER OF IMAGES: 9 digital fluoroscopic images LIMITATIONS: None. FINDINGS: Intra procedural imaging and fluoroscopy during ERCP performed by Dr. Edwardo Farias post cholecystectomy. Visualized pancreatic duct normal caliber. Contrast injected into the common bile duct. Common bile duct was swept with a balloon tipped cathet er. Final film demonstrates no biliary tree filling defects. Spillage of contrast into the duodenum . IMPRESSION: IMAGE(S) OBTAINED DURING PROCEDURE. COMMENT: Quality ID 145: Final reports for procedures using fluoroscopy that document radiation exp osure indices, or exposure time and number of fluorographic images (if radiation exposure indices are not available) Please consult full operative report of the attending physician for description of the procedure. TECHNICAL DOCUMENTATION: JOB ID: [id number] 2010 [employer]- All Rights Reserved Reading location - IP/workstation name: [email or web address]
[2020-05-05 09:38] VITALS: BP 109/67
== END 2020-05-05 10:13 | disposition home or self-care (01) ==
LOC: ER 22:03 → EH 05-04 11:26 → INTOOBSV 05-04 11:26 → 2N 05-04 16:00
PROVIDERS: ATTEND Internal Medicine Gastroenterology
DX: O99.63 Diseases of the digestive system complicating the puerperium (principal); K91.86 Retained cholelithiasis following cholecystectomy; Y83.8 Other surgical procedures as the cause of abnormal reaction of the patient, or of later complication, without mention of misadventure at the time of the procedure; R94.5 Abnormal results of liver function studies; O99.285 Endocrine, nutritional and metabolic diseases complicating the puerperium; E03.9 Hypothyroidism, unspecified; O13.5 Gestational [pregnancy-induced] hypertension without significant proteinuria, complicating the puerperium; J45.909 Unspecified asthma, uncomplicated; Z79.899 Other long term (current) drug therapy; Z03.818 Encounter for observation for suspected exposure to other biological agents ruled out; Z90.49 Acquired absence of other specified parts of digestive tract; R17 Unspecified jaundice
CPT/HCPCS: 96376; 99285; 96361; 96374; 96375; 43260; 36415 ×2; 87086; 83690; 84703; 85025; 87635; 80076; 80053; 81001; 74181; 74328; 74177; 00732; 43277; G0378 ×3; J2250; J1100; S0119; J3010; J1885 ×2; J2270; J2405; J7030; J7120 ×2; J2704; J0744; C9803; 732

== ENCOUNTER → 2020-05-11 | Outpatient (CLI) | payer BC, OTHER ==
[2020-05-11 11:39] LABS: ALBUMIN 5.1 g/dL (3.5-5.0); ALKALINE PHOSPHATASE 136 U/L (38-126); ASPARTATE AMINO TRANSFERASE 23 U/L (14-36); BILIRUBIN,DIRECT 0.3 mg/dL (0.0-0.4); BILIRUBIN,TOTAL 0.6 mg/dL (0.2-1.3); TOTAL PROTEIN 8.4 g/dL (6.3-8.2)
== END ==
LOC: OD 10:16
PROVIDERS: ATTEND Surgery
DX: R79.89 Other specified abnormal findings of blood chemistry (principal); Z90.49 Acquired absence of other specified parts of digestive tract; Z79.899 Other long term (current) drug therapy
CPT/HCPCS: 36415; 80076